=== PATIENT | female | born 2000 | race Caucasian/White ===

== ENCOUNTER 2025-04-26 18:23 | Emergency (ER) | payer SELFPAY ==
--- OUTSIDE RECORDS SUMMARY | 2025-04-26 18:30 | XMS REPORT | Continuity of Care Document ---
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 !Phasic!No ! ! + -------+------+------+ + !Proximal PROF !Phasic!No ! ! + +------+------+ + !Prox Femoral !Phasic!No ! ! + +------+------+ + !Dist Femoral !Phasic!No ! ! + +------+------+ + !Popliteal !Phasic!No ! ! + +------+------+ + Signature Date Dictated By: CHI DE LEÓN MD Transcribed By: [facility] on 03/19/23 1105 COPY TO:Blood hemoglobin measurement (moles/volume)2023-03-18 23:22:00* Test Item Value Reference Range Interpretation [facility] Hem[facility] (test code = 12158-4) 10.8 12.0-16.0 [facility] hematocrit (volume fraction) 2023-03-18 23:22:00* Test Item Value Reference Range Interpretation Comme [facility] Hematocrit (test code = 4544-3) 33.7 34.2-44.1 [facility] HospitalAutomated erythrocyte mean corpuscular volume 2023-03-18 23:22:00* Test Item Value Reference Range Interpretation Comme nts Mean Corpuscular Volume (madeline t code = 787-2) 89.9 81-99 [facility] HospitalAutomated erythrocyte mean corpuscular hemoglobin (mass per erythrocyte)2023-03-18 23:22:00* Test Item Value Reference Range Interpretation Comme nts Mean Corpuscular Hemoglobin (test code = 785-6) 28.8 28-32 [facility] HospitalAutomated erythrocyte mean corpuscular hemoglobin concentration measurement (mass/volume)2023-03-18 23:22:00* Test Item Value Reference Range Interpretation Comme nts Mean Corpuscular Hemoglobin Concent (test code = 786-4) 32.0 31-35 [facility] HospitalRDW YugIf-Cmy9924-52-06 23:22:00* Test Item Value Reference Range Interpretation Comme nts Red Cell Distribution Width (test code = 57446-4) 15.0 11.7-14.4 [facility] HospitalAutomated blood platelet count (count/volume) 2023-03-18 23:22:00* Test Item Value Reference Range Interpretation Comme [facility] Platelet Count (test code = 777-3) 199 140-360 [facility] HospitalAutomated blood segmented neutrophil count as percentage of total rflgxiklba8202-30-98 23:22:00* Test Item Value Reference Range Interpretation Comme nts Neutrophils (%) (Auto) (test code = 59192-1) 55.7 38.7-80.0 [facility] HospitalAutomated blood lymphocyte count as percentage ot total zctqejgqkk6337-69-27 23:22:00* Test Item Value Reference Range Interpretation Comme nts Lymphocytes (%) (Auto) (test code = 736-9) 32.1 18.0-39.1 [facility] HospitalAutomated blood monocyte count as percentage of total vocaiwsoje0234-50-57 23:22:00* Test Item Value Reference Range Interpretation Comme nts Monocytes (%) (Auto) (test c ode = 5905-5) 9.4 4.4-11.3 [facility] HospitalAutomated blood eosinophil count as percentage of total nlmantaxdv1321-84-91 23:22:00* Test Item Value Reference Range Interpretation Comme nts Eosinophils (%) (Auto) (test code = 713-8) 2.0 0.0-6.0 [facility] HospitalAutomated blood basophil count as percentage of total nwsrswdsqs5390-14-45 23:22:00* Test Item Value Reference Range Interpretation Comme nts Basophils (%) (Auto) (test c ode = 706-2) 0.5 0.0-1.0 [facility] HospitalFluoroscopic procedure less than one hour gsrgrwur1893-35-48 23:22:00* Test Item Value Reference Range Interpretation Comme nts IM GRANULOCYTES % (test code = IM GRANULOCYTES %) 0.3 0.0-1.0 [facility] HospitalAutomated blood neutrophil polnl7323-62-83 23:22:00* Test Item Value Reference Range Interpretation Comme nts Neutrophils # (Auto) (test c ode = 751-8) 4.4 2.1-6.9 [facility] HospitalBlood lymphocytes count (number/volume) 2023-03-18 23:22:00* Test Item Value Reference Range Interpretation Comme nts Lymphocytes # (Auto) (test c ode = 85426-1) 2.5 1.0-3.2 [facility] HospitalBlood monocytes automated count (number/volume)2023-03-18 23:22:00* Test Item Value Reference Range Interpretation Comme nts Monocytes # (Auto) (test code = 742-7) 0.7 0.2-0.8 [facility] HospitalAutomated blood eosinophil uryjl4672-53-97 23:22:00* Test Item Value Reference Range Interpretation Comme nts Eosinophils # (Auto) (test c ode = 711-2) 0.2 0.0-0.4 [facility] HospitalAutomated blood basophil count (count/volume) 2023-03-18 23:22:00* Test Item Value Reference Range Interpretation Comme nts Basophils # (Auto) (test code = 704-7) 0.0 0.0-0.1 [facility] sodium measurement (moles/volume)2023-03-18 23:22:00* Test Item Value Reference Range Interpretation Comme nts Sodium Level (test code = 2951-2) 143 136-145 [facility]anoerum or plasma potassium measurement (moles/volume)2023-03-18 23:22:00* Test Item Value Reference Range Interpretation Comme [facility] Potassium Level (test code = 2823-3) 3.9 3.5-5.1 [facility] or plasma chloride measurement (moles/volume)2023-03-18 23:22:00* Test Item Value Reference Range Interpretation Comme [facility] Chloride Level (test code = 2075-0) 109 98-107 [facility]anoerum or plasma carbon dioxide, total measurement (moles/volume)2023-03-18 23:22:00* Test Item Value Reference Range Interpretation Comme [facility] Carbon Dioxide Level (test c ode = 2028-9) 24 22-29 [facility]anoerum or plasma anion eyp6291-80-21 23:22:00 * Test Item Value Reference Range Interpretation Comme [facility] Anion Gap (test code = 46207-9) 13.9 8-16 [facility]anoerum or plasma urea nitrogen measurement (mass/volume)2023-03-18 23:22:00* Test Item Value Reference Range Interpretation Comme [facility] Blood Urea Nitrogen (test co de = 3094-0) 10 7-26 [facility]um or plasma creatinine measurement (mass/volume)2023-03-18 23:22:00* Test Item Value Reference Range Interpretation Comme [facility] Creatinine (test code = 2160-0) 0.93 0.57-1.11 [facility]ano[facility]um or plasma urea nitrogen/creatinine mass ucaxt6643-86-05 23:22:00* Test Item Value Reference Range Interpretation Comme [facility] BUN/Creatinine Ratio (test c ode = 3097-3) 11 6-25 [facility] HospitalGlomerular filtration rate/1.73 sq M.predicted [Volume Rate/Area] in Serum, Plasma or Blood by Creatinine-based formula (CKD-EPI 2020)2023-03-18 23:22:00* Test Item Value Reference Range Interpretation Comme [facility] Estimated GFR (CKD-EPI) (madeline t code = 02362-3) 89 >=60 [facility] HospitalGlucose usxvbfbxvxt7049-77-36 23:22:00* Test Item Value Reference Range Interpretation Comme [facility] Glucose Level (test code = ZQZ2599) 99 74-118 [facility]anoerum or plasma calcium measurement (mass/volume)2023-03-18 23:22:00* Test Item Value Reference Range Interpretation Comme [facility] Calcium Level (test code = 42095-4) 9.6 8.4-10.2 [facility]anoerum or plasma total bilirubin measurement (mass/volume)2023-03-18 23:22:00* Test Item Value Reference Range Interpretation Comme [facility] Total Bilirubin (test code = 1975-2) 0.7 0.2-1.2 [facility]anoerum or plasma alanine aminotransferase measurement (enzymatic activity/volume)2023-03-18 23:22:00* Test Item Value Reference Range Interpretation Comme [facility] Alanine Aminotransferase (AL T/SGPT) (test code = 1742-6) 12 0-55 [facility]ano[facility]um or plasma protein measurement (mass/volume)2023-03-18 23:22:00* Test Item Value Reference Range Interpretation Comme [facility] Total Protein (test code = 2885-2) 7.5 6.5-8.1 [facility] or plasma albumin measurement (mass/volume)2023-03-18 23:22:00* Test Item Value Reference Range Interpretation Comme [facility] Albumin (test code = 1751-7) 3.8 3.5-5.0 [facility] HospitalPlasma globulin measurement (mass/volume) 2023-03-18 23:22:00* Test Item Value Reference Range Interpretation Comme [facility] Globulin (test code = 70839-0) 3.7 2.3-3.5 [facility] or plasma albumin/globulin mass ratio 2023-03-18 23:22:00* Test Item Value Reference Range Interpretation Comme [facility] Albumin/Globulin Ratio (test code = 1759-0) 1.0 0.8-2.0 [facility]erum or plasma alkaline phosphatase measurement (enzymatic activity/volume)2023-03-18 23:22:00* Test Item Value Reference Range Interpretation Comme [facility] Alkaline Phosphatase (test c ode = 6768-6) 82 40-150 [facility] HospitalBNP Hng-fStl5784-22-06 23:22:00* Test Item Value Reference Range Interpretation Comme nts B-Type Natriuretic Peptide ( test code = 72044-0) 20.3 0-100 [facility]anoerum or plasma creatine kinase measurement (enzymatic activity/volume)2023-03-18 23:22:00* Test Item Value Reference Range Interpretation Comme [facility] Creatine Kinase (test code = 2157-6) 133 29-168 [facility] HospitalTroponin I measurement by highly sensitive enzyme ijgtnfmmhwi0232-74-19 23:22:00* Test Item Value Reference Range Interpretation Comme nts Troponin I (test code = 49307-6) < 0.001 0-0.300 [facility]anoerum or plasma choriogonadotropin ( test) gpylxzjhd8724-81-53 23:22:00* Test Item Value Reference Range Interpretation Comme nts Human Chorionic Gonadotropin , Qual (test code = 2118-8) NEGATIVE NEGATIVE [facility] HospitalWBC # [id number] 23:22:00* Test Item Value Reference Range Interpretation Comme [facility] White Blood Count (test code = 51868-7) 7.87 4.8-10. 8 [facility] HospitalBlood erythrocytes automated count (number/volume)2023-03-18 23:22:00* Test Item Value Reference Range Interpretation Comme [facility] Red Blood Count (test code = 789-8) 3.75 3.6-5.1 [facility] HospitalHEMATOLOGY2023-05-18 11:58:00* Test Item Value Reference Range Interpretation Comme nts Hgb (test code = Hgb) 9.5 12.0-16.0 [facility] InternationalF[facility] RBILJYQ9457-67-47 15:44:00* Test Item Value Reference Range Interpretation Comme nts ABO/Rh (test code = ABO/Rh) O POS [facility]WnijxacHXTUGGGOJP4243-53-13 15:44:00* Test Item Value Reference Range Interpretation Comme nts Segs (test code = Segs) 68.1 45.0-75.0 [facility] TempleXxqdizuVMYVAAAWPS8322-19-99 15:44:00* Test Item Value Reference Range Interpretation Comme nts Hep Bs Ag (test code = Hep Bs Ag) Negative *NA*(01/26/23 10:44 AM) [facility] AND [id number] 05:28:00* Test Item Value Reference Range Interpretation Comme nts UA Color (test code = UA Color) Yellow *NA*(11/27/22 12:28 AM) [facility] AND PPBZK0230-90-55 08:54:00* Test Item Value Reference Range Interpretation Comme nts UA Color (test code = UA Color) Yellow *NA*(11/03/22 2:54 AM) [facility]Urine color shlfsxtoywcab9350-22-54 17:20:00* Test Item Value Reference Range Interpretation Comme nts Urine Color (test code = 5778-6) BROWN YELLOW [facility] HospitalUrine iscoroz5932-66-22 17:20:00* Test Item Value Reference Range Interpretation Comme nts Urine Clarity (test code = 84084-7) HAZY CLEAR [facility]anopecific gravity of Urine by Test strip 2022-06-30 17:20:00* Test Item Value Reference Range Interpretation Comme nts Urine Specific [place] (test code = 5811-5) >=1.030 1.010-1.025 [facility] HospitalUrine pH measurement by automated test strip 2022-06-30 17:20:00* Test Item Value Reference Range Interpretation Comme nts Urine pH (test code = 05889-2) 5.5 5-7 [facility] HospitalUrine leukocyte esterase detection by automated test ajxch6034-31-86 17:20:00* Test Item Value Reference Range Interpretation Comme nts Urine Leukocyte Esterase ( st code = 47415-3) NEGATIVE NEGATIVE [facility] HospitalUrine nitrite detection by automated test itaba9952-72-52 17:20:00* Test Item Value Reference Range Interpretation Comme nts Urine Nitrite (test code = 65510-1) POSITIVE NEGATIVE [facility] HospitalUrine protein detection by automated test nldtj7584-16-57 17:20:00* Test Item Value Reference Range Interpretation Comme [facility] Urine Protein (test code = 46725-6) 1+ NEGATIVE [facility] HospitalUrine glucose detection by automated test bqoxz3656-83-18 17:20:00* Test Item Value Reference Range Interpretation Comme nts Urine Glucose (UA) (test cod e = 45418-9) NEGATIVE NEGATIVE [facility] HospitalUrine ketones detection by automated test haaec1931-79-36 17:20:00* Test Item Value Reference Range Interpretation Comme nts Urine Ketones (test code = 51365-2) 2+ NEGATIVE [facility] HospitalUrine urobilinogen measurement by test strip (mass/volume)2022-06-30 17:20:00* Test Item Value Reference Range Interpretation Comme nts Urine Urobilinogen (test cod e = 90638-8) 0.2 0.2-1 [facility] HospitalUrine total bilirubin lxkszafto1586-18-67 17:20:00* Test Item Value Reference Range Interpretation Comme nts Urine Bilirubin (test code = 1977-8) NEGATIVE NEGATIVE [facility] HospitalUrine erythrocytes uielssmty9098-45-69 17:20:00* Test Item Value Reference Range Interpretation Comme nts Urine Blood (test code = 57782-0) MODERATE NEGATIVE [facility] HospitalAutomated urine sediment leukocyte count by microscopy (number/high power field)2022-06-30 17:20:00* Test Item Value Reference Range Interpretation Comme nts Urine WBC (test code = 5821-4) 11-20 0-5 [facility] HospitalErythrocytes detection in urine sediment by light ufdqjyjjyl4023-00-66 17:20:00* Test Item Value Reference Range Interpretation Comme nts Urine RBC (test code = 63231-9) 11-20 0-5 [facility] HospitalBacteria detection in urine sediment by light jgzaxxrmbx8960-87-85 17:20:00* Test Item Value Reference Range Interpretation Comme nts Urine Bacteria (test code = 30070-1) MANY NONE [facility] HospitalEpithelial cells detection in urine sediment by light zyppolcgbf4399-58-65 17:20:00* Test Item Value Reference Range Interpretation Comme nts Urine Epithelial Cells (test code = 49218-3) MODERATE NONE [facility] HospitalTransitional cells detection in urine sediment by light ijyhnxouup4751-39-52 17:20:00* Test Item Value Reference Range Interpretation Comme nts Urine Transitional Epithelia l Cells (test code = 8249-5) MODERATE NONE [facility] OKOT6759-65-89 15:08:00 [facility] : 2000 Sex: F [place] [address] Patient Name: LUIS ALBERTO GAFFNEY MR #: [id number] : 2000 Age/Sex: 22/F Req #: [id number] Adm Physician: Ordered by: Cain Díaz MD Report #: [id number] Location: ER Room/Bed: Report: Diagnostic Imaging Report Status: Signed Procedure: [id number] US/US OB 1st TRIM SINGLE GEST Exam Date: 06/30/22 Exam Time: 1346 US OB 1st TRIM SINGLE GEST CLINICAL HISTORY: Nausea/vomiting, abdominal pain Last Menstrual Period: 05/07/2022. GP Status: . COMPARISON: None. TECHNIQUE:Real time transabdominal images were obtained, including color and spectral doppler of the adnexa. FINDINGS: There is a single intrauterine with a gestational sac, yolk sac, and embryo. Thecrown rump length is 1.69 cm corresponding to approximately 8 weeks and one day. The gestational sac is intact with a small perigestational hemorrhage measuring approximately 1.4 x 1.1 cm. Real time examination shows cardiac activity. The heart rate is 154 beats per minute. There are no fibroids. No adnexal masses. Normal color and spectral Doppler flow to bilateral ovaries IMPRESSION: Small subchorionic hematoma. Single, live intrauterine with an estimated gestational age of 8 weeksand one day (plus or minus 1 week), compared to gestational age by LMP of 7 weeks and 5 days. Signed by: Lev Zapata on 06/30/2022 3:08 PM Dictated By: LEV ZAPATA MD 1510 Transcribed By: DEBBIE on 06/30/22 1508 COPY TO: CAIN DÍAZ MDBlcadence leukocytes automated count (number/volume)2022-06-30 12:39:00* Test Item Value Reference Range Interpretation Comme [facility] White Blood Count (test code = 6690-2) 15.95 4.8-10.8 [facility] HospitalBlood erythrocytes automated count (number/volume)2022-06-30 12:39:00* Test Item Value Reference Range Interpretation Comme [facility] Red Blood Count (test code = 789-8) 4.86 3.6-5.1 [facility] HospitalBlood hemoglobin measurement (moles/volume) 2022-06-30 12:39:00* Test Item Value Reference Range Interpretation Comme [facility] Hemoglobin (test code = 13564-5) 15.0 12.0-16.0 [facility] HospitalAutomated blood hematocrit (volume fraction) 2022-06-30 12:39:00* Test Item Value Reference Range Interpretation Comme [facility] Hematocrit (test code = 4544-3) 46.2 34.2-44.1 [facility] HospitalAutomated erythrocyte mean corpuscular volume 2022-06-30 12:39:00* Test Item Value Reference Range Interpretation Comme [facility] Mean Corpuscular Volume (madeline t code = 787-2) 95.1 81-99 [facility] HospitalAutomated erythrocyte mean corpuscular hemoglobin (mass per erythrocyte)2022-06-30 12:39:00* Test Item Value Reference Range Interpretation Comme [facility] Mean Corpuscular Hemoglobin (test code = 785-6) 30.9 28-32 [facility] HospitalAutomated erythrocyte mean corpuscular hemoglobin concentration measurement (mass/volume)2022-06-30 12:39:00* Test Item Value Reference Range Interpretation Comme [facility] Mean Corpuscular Hemoglobin Concent (test code = 786-4) 32.5 31-35 [facility] HospitalRDW EatVm-Xza5013-99-18 12:39:00* Test Item Value Reference Range Interpretation Comme [facility] Red Cell Distribution Width (test code = 90549-1) 12.5 11.7-14.4 [facility] HospitalAutomated blood platelet count (count/volume) 2022-06-30 12:39:00* Test Item Value Reference Range Interpretation Comme [facility] Platelet Count (test code = 777-3) 209 140-360 [facility]om[facility] segmented neutrophil count as percentage of total aozyvkmhlo5019-63-33 12:39:00* Test Item Value Reference Range Interpretation Comme [facility] Neutrophils (%) (Auto) (test code = 78572-5) 95.3 38.7-80.0 [facility] HospitalAutomated blood lymphocyte count as percentage ot total qzycrxfxix6046-32-19 12:39:00* Test Item Value Reference Range Interpretation Comme nts Lymphocytes (%) (Auto) (test code = 736-9) 1.6 18.0-39.1 [facility] HospitalAutomated blood monocyte count as percentage of total xpgtuwnmtw5516-13-60 12:39:00* Test Item Value Reference Range Interpretation Comme nts Monocytes (%) (Auto) (test c ode = 5905-5) 2.6 4.4-11.3 [facility] HospitalAutomated blood eosinophil count as percentage of total ucddibeflv0510-84-43 12:39:00* Test Item Value Reference Range Interpretation Comme nts Eosinophils (%) (Auto) (test code = 713-8) 0.0 0.0-6.0 [facility] HospitalAutomated blood basophil count as percentage of total opbsrlqgge2317-91-77 12:39:00* Test Item Value Reference Range Interpretation Comme nts Basophils (%) (Auto) (test c ode = 706-2) 0.1 0.0-1.0 [facility] HospitalFluoroscopic procedure less than one hour ymhuoggf1725-90-21 12:39:00* Test Item Value Reference Range Interpretation Comme nts IM GRANULOCYTES % (test code = IM GRANULOCYTES %) 0.4 0.0-1.0 [facility] HospitalAutomated blood neutrophil dyftz5149-08-15 12:39:00* Test Item Value Reference Range Interpretation Comme nts Neutrophils # (Auto) (test c ode = 751-8) 15.2 2.1-6.9 [facility] HospitalBlood lymphocytes count (number/volume) 2022-06-30 12:39:00* Test Item Value Reference Range Interpretation Comme nts Lymphocytes # (Auto) (test c ode = 28564-6) 0.3 1.0-3.2 [facility] HospitalBlood monocytes automated count (number/volume)2022-06-30 12:39:00* Test Item Value Reference Range Interpretation Comme nts Monocytes # (Auto) (test code = 742-7) 0.4 0.2-0.8 [facility] HospitalAutomated blood eosinophil olxrb0524-27-42 12:39:00* Test Item Value Reference Range Interpretation Comme [facility] Eosinophils # (Auto) (test c ode = 711-2) 0.0 0.0-0.4 [facility] HospitalAutomated blood basophil count (count/volume) 2022-06-30 12:39:00* Test Item Value Reference Range Interpretation Comme [facility] Basophils # (Auto) (test code = 704-7) 0.0 0.0-0.1 [facility]ano[facility]um or plasma sodium measurement (moles/volume)2022-06-30 12:39:00* Test Item Value Reference Range Interpretation Comme [facility] Sodium Level (test code = 2951-2) 139 136-145 [facility] potassium measurement (moles/volume)2022-06-30 12:39:00* Test Item Value Reference Range Interpretation Comme [facility] Potassium Level (test code = 2823-3) 4.1 3.5-5.1 [facility] chloride measurement (moles/volume)2022-06-30 12:39:00* Test Item Value Reference Range Interpretation Comme [facility] Chloride Level (test code = 2075-0) 102 98-107 [facility] carbon dioxide, total measurement (moles/volume)2022-06-30 12:39:00* Test Item Value Reference Range Interpretation Comme [facility] Carbon Dioxide Level (test c ode = 2027-9) 22 22-29 [facility] plasma anion [id number] 12:39:00 * Test Item Value Reference Range Interpretation Comme [facility] Anion Gap (test code = 38689-3) 19.1 8-16 [facility] urea nitrogen measurement (mass/volume)2022-06-30 12:39:00* Test Item Value Reference Range Interpretation Comme [facility] Blood Urea Nitrogen (test co de = 3094-0) 14 7-26 [facility] creatinine measurement (mass/volume)2022-06-30 12:39:00* Test Item Value Reference Range Interpretation Comme nts Creatinine (test code = 2160-0) 0.71 0.57-1.11 [facility] urea nitrogen/creatinine mass [id number] 12:39:00* Test Item Value Reference Range Interpretation Comme [facility] BUN/Creatinine Ratio (test c ode = 3097-3) 20 6-25 [facility] rate/1.73 sq M.predicted [Volume Rate/Area] in Serum, Plasma or Blood by Creatinine-based formula (CKD-EPI 2020)2022-06-30 12:39:00* Test Item Value Reference Range Interpretation Comme [facility] Estimated GFR (CKD-EPI) (test code = 93760-1) 123 See_Comment [Automated message] The system which generated this result transmitted reference range: >=60. The reference range was not used to interpret this result as normal/abnormal. [facility] HospitalGlucose [id number] 12:39:00* Test Item Value Reference Range Interpretation Comme [facility] Glucose Level (test code = DDJ2787) 129 74-118 [facility] calcium measurement (mass/volume)2022-06-30 12:39:00* Test Item Value Reference Range Interpretation Comme [facility] Calcium Level (test code = 32890-1) 9.8 8.4-10.2 [facility] total bilirubin measurement (mass/volume)2022-06-30 12:39:00* Test Item Value Reference Range Interpretation Comme [facility] Total Bilirubin (test code = 1975-2) 2.1 0.2-1.2 [facility] alanine aminotransferase measurement (enzymatic activity/volume)2022-06-30 12:39:00* Test Item Value Reference Range Interpretation Comme [facility] Alanine Aminotransferase (AL T/SGPT) (test code = 1742-6) 13 0-55 [facility] protein measurement (mass/volume)2022-06-30 12:39:00* Test Item Value Reference Range Interpretation Comme [facility] Total Protein (test code = 2885-2) 8.7 6.5-8.1 [facility] albumin measurement (mass/volume)2022-06-30 12:39:00* Test Item Value Reference Range Interpretation Comme [facility] Albumin (test code = 1751-7) 4.4 3.5-5.0 [facility] globulin measurement (mass/volume) 2022-06-30 12:39:00* Test Item Value Reference Range Interpretation Comme [facility] Globulin (test code = 24412-5) 4.3 2.3-3.5 [facility] albumin/globulin mass ratio 2022-06-30 12:39:00* Test Item Value Reference Range Interpretation Comme [facility] Albumin/Globulin Ratio (test code = 1759-0) 1.0 0.8-2.0 [facility] alkaline phosphatase measurement (enzymatic activity/volume)2022-06-30 12:39:00* Test Item Value Reference Range Interpretation Comme [facility] Alkaline Phosphatase (test c ode = 6768-6) 72 40-150 [facility] chorionic gonadotropin measurement (mass/volume)2022-06-30 12:39:00* Test Item Value Reference Range Interpretation Comme [facility] Human Chorionic Gonadotropin , Quant (test code = 76511-1) 500771.12 0-10 [facility]- XR KNEE 3 V [id number] 22:34:00 [facility])Name: LUIS ALBERTO GAFFNEY : 2000 Sex: F Name: JOHAN GAFFNEYA [facility] : 2000 Age/S:22 /F [address] [facility] Unit#:[id number] Loc: [place] [address] Phys: Ariela Guan MD Date: PHONE #: [phone] Status: PRE ER FAX #: [phone] Exam Date: 05/11/2022 Reason: PAIN EXAMS: CPT CODE: [id number] XR KNEE 3 V RT 46018 REASON FOR EXAM: PAIN EXAM ORDER DATE: 05/11/2022 9:53 PM Ordering: Ariela Guan MD Attending:Ariela Guan MD Location:[facility] PROCEDURE: - XR KNEE 3 V RT FINDINGS: 3 views of the right knee were obtained. The osseous structures are unremarkable in size and shape. The joint spaces are maintained. No evidence of fracture. No evidence of joint effusion. The patella is intact IMPRESSION: Unremarkable right knee at 2234 Reported and signed by: Carolyn Tracy M.D. CC: Ariela Guan MD; Andres Hameed Technologist: Marium Murray([place])(CT) Trnscrpt Data: 05/11/2022 (2233) [email or web address] Orig Print D/T: S: 05/11/2022 (2232) PAGE 1 Signed ReportLACTIC [id number] 23:22:00* Test Item Value Reference Range Interpretation Comme nts LACTIC ACID (test code = LACT) 0.6 mmol/L 0.4-1.9 N HEPATIC FUNCTION [id number] 22:34:00* Test Item Value Reference Range Interpretation Comme nts TOTAL PROTEIN (test code = PROT) 8.9 g/dL 6.4-8.2 H ALBUMIN (test code = ALB) 4.80 g/dL 3.4-5.0 N BILIRUBIN TOTAL (test code = BILT) 2.10 mg/dL 0.0-1.0 H BILIRUBIN DIRECT (test code = BILD) 0.70 MG/DL 0.0-0.30 H BILIRUBIN INDIRECT (test cod e = BILIND) 1.40 MG/DL SGOT/AST (test code = AST)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 formula.Chronic kidney disease is defined as either kidney damageor GFR <60 mL/min/1.73 m2 for >3 months. [Automated message] The system which generated this result transmitted reference range: >=60. The reference range was not used to interpret this result as normal/abnormal. CREATININE (test code = CREAT) 0.60 mg/dL 0.55-1.02 N Note change in reference range due to change in reagent. BUN/CREATININE RATIO (test code = BUN/CREA) 15.4 10-20 N CALCIUM (test code = CA) 9.8 mg/dL 8.5-10.1 N HEPATIC FUNCTION [id number] 00:35:00* Test Item Value Reference Range Interpretation Comme nts TOTAL PROTEIN (test code = PROT) 7.6 gram/dL 6.4-8.2 N ALBUMIN (test code = ALB) 4.3 g/dL 3.4-5.0 N GLOBULIN (test code = GLOB) 3.3 gram/dL 2.7-4.2 N ALBUMIN/GLOBULIN RATIO (test code = A/G) 1.3 0.75-1.50 N BILIRUBIN TOTAL (test code = BILT) 0.50 mg/dL 0.0-1.0 N BILIRUBIN DIRECT (test code = BILD) 0.20 mg/dL 0.0-0.20 N SGOT/AST (test code = AST) 24 IUnit/L 15-37 N SGPT/ALT (test code = ALT) 24 IUnit/L 12-78 N ALKALINE PHOSPHATASE TOTAL (test code = ALKP) 81 IUnit/L 45-117 N Note change in reference range due to change in reagent. LACTIC DEHYDROGENASE(LDH)2020-11-08 00:35:00* Test Item Value Reference Range Interpretation Comme nts LACTIC DEHYDROGENASE(LDH) (t est code = LDH) 135 IUnit/L 84-246 N [id number] 00:35:00* Test Item Value Reference Range Interpretation Comme nts LIPASE (test code = LIP) 39 U/L 12.00-57.00 N [id number] 00:35:00* Test Item Value Reference Range Interpretation Comme nts TROPONIN-I (test code = TROPI) 0.013 ng/mL 0-0.045 N [id number] 00:35:00* Test Item Value Reference Range Interpretation Comme nts FERRITIN (test code = ASH) 21 ng/mL 8-388 N B-TYPE NATRIURETIC [id number] 00:32:00* Test Item Value Reference Range Interpretation Comme nts B-TYPE NATRIURETIC PEPTIDE (test code = BNP) 16.6 pgram/mL 0-100 N C REACTIVE [id number] 00:32:00* Test Item Value Reference Range Interpretation Comme nts C REACTIVE PROTEIN (test cod e = CRP) < 0.40 mg/dL 0-0.3 H LACTIC [id number] 00:29:00* Test Item Value Reference Range Interpretation Comme nts LACTIC ACID (test code = LACT) 1.2 mmol/L 0.4-1.9 N CBC W/AUTO [id number] 23:52:00* Test Item Value Reference Range Interpretation Comme nts WHITE BLOOD CELL (test code = WBC) 6.2 K/mm3 4.5-12.5 N RED BLOOD CELL (test code = RBC) 4.60 mill/mm3 3.7-5.2 N HEMOGLOBIN (test code = HGB) 14.2 gram/dL 11.5-15.5 N HEMATOCRIT (test code = HCT) 42.2 % 36.0-46.0 N MEAN CELL VOLUME (test code = MCV) 91.7 fL 80-98 N MEAN CELL HGB (test code = MCH) 30.9 picogram 27.0-33.0 N MEAN CELL HGB CONCETRATION (test code = MCHC) 33.6 gram/dL 33.0-36.0 N RED CELL DISTRIBUTION WIDTH (test code = RDW) 12.8 % 11.6-16.2 N RED CELL DISTRIBUTION WIDTH SD (test code = RDW-SD) 42.6 fL 37.0-51.0 N PLATELET COUNT (test code = PLT) 218 K/mm3 150-450 N MEAN PLATELET VOLUME (test c ode = MPV) 11.2 fL 6.7-11.0 H NEUTROPHIL % (test code = NT%) 51.0 % 39.0-69.0 N IMMATURE GRANULOCYTE % (test code = IG%) 0.5 % 0.0-5.0 N LYMPHOCYTE % (test code = LY%) 35.3 % 25.0-55.0 N MONOCYTE % (test code = MO%) 9.2 % 0.0-10.0 N EOSINOPHIL % (test code = EO%) 3.4 % 0.0-5.0 N BASOPHIL % (test code = BA%) 0.6 % 0.0-1.0 N NUCLEATED RBC % (test code = NRBC%) 0.0 % 0-0 N NEUTROPHIL # (test code = NT#) 3.16 K/mm3 1.8-7.7 N IMMATURE GRANULOCYTE # (test code = IG#) 0.03 x10 3/uL 0-0.03 N LYMPHOCYTE # (test code = LY#) 2.19 K/mm3 1.0-5.0 N MONOCYTE # (test code = MO#) 0.57 K/mm3 0-0.8 N EOSINOPHIL # (test code = EO#) 0.21 K/mm3 0.0-0.5 N BASOPHIL # (test code = BA#) 0.04 K/mm3 0.0-0.2 N NUCLEATED RBC # (test code = NRBC#) 0.00 K/mm3 0.0-0.1 N - XR CHEST 1 [id number] 23:29:00 [facility])Name: LUIS ALBERTO GAFFNEY : 2000 Sex: F FAX: Rupal Roque NP [place]: St: REG FAX: Y Andres Hameed S [phone] Name: LUIS ALBERTO GAFFNEY [facility] : 2000 Age/S: 20/F [address] [facility] Unit #: [id number] Loc: [place] [address] Phys: Rupal Roque NP Acct: [id number] Dis Date: Status: REG ER PHONE #: [phone] Exam Date: 0 11/07/2020 2314 FAX #: [phone] Reason: SHORTNESS OF BREATH EXAMS: CPT CODE: [id number] XR CHEST1 V [id number] DICTATION LOCATION: [facility] HISTORY: Female, 20 years of age with SHORTNESS OF BREATH EXAM: CHEST X-RAY, ONE VIEW COMPARISON: None COMMENT: Frontal view of the chest is provided. No focal infiltrate, consolidation, mass lesion, or effusion is seen. Cardiac silhouette is within normal limits.No acute bony abnormalities. IMPRESSION: No acute cardiopulmonary disease. Electronically Signedby Marium Kaur MD on 11/07/2020 at 2329 Reported and signed by: Marium Kaur MD CC: Rupal Roque NP; Andres Hameed Technologist: RT ANUJ Trnscrd Date/Time/By: 11/07/2020 (7661): By: Ayden Orig Print D/T: S: 11/07/2020 (8240) PAGE 1 Signed ReportCBC W/AUTO [id number] 07:34:00* Test Item Value Reference Range Interpretation Comme nts WHITE BLOOD CELL (test code = WBC) 20.0 K/mm3 4.5-12.5 H RED BLOOD CELL (test code = RBC) 3.55 mill/mm3 3.7-5.2 L HEMOGLOBIN (test code = HGB) 11.3 gram/dL 11.5-15.5 L HEMATOCRIT (test code = HCT) 35.0 % 36.0-46.0 L MEAN CELL VOLUME (test code = MCV) 98.6 fL 80-98 H MEAN CELL HGB (test code = MCH) 31.8 picogram 27.0-33.0 N MEAN CELL HGB CONCETRATION (test code = MCHC) 32.3 gram/dL 33.0-36.0 L RED CELL DISTRIBUTION WIDTH (test code = RDW) 13.1 % 11.6-16.2 N RED CELL DISTRIBUTION WIDTH SD (test code = RDW-SD) 46.5 fL 37.0-51.0 N PLATELET COUNT (test code = PLT) 147 K/mm3 150-450 L RESULT VERIFIED BY REPEAT ANALYSIS MEAN PLATELET VOLUME (test code = MPV) 12.4 fL 6.7-11.0 H NEUTROPHIL % (test code = NT%) 81.3 % 39.0-69.0 H IMMATURE GRANULOCYTE % (test code = IG%) 0.7 % 0.0-5.0 N LYMPHOCYTE % (test code = LY%) 11.0 % 25.0-55.0 L MONOCYTE % (test code = MO%) 6.3 % 0.0-10.0 N EOSINOPHIL % (test code = EO%) 0.4 % 0.0-5.0 N BASOPHIL % (test code = BA%) 0.3 % 0.0-1.0 N NUCLEATED RBC % (test code = NRBC%) 0.0 % 0-0 N NEUTROPHIL # (test code = NT#) 16.25 K/mm3 1.8-7.7 H IMMATURE GRANULOCYTE # (test code = IG#) 0.15 x10 3/uL 0-0.03 H LYMPHOCYTE # (test code = LY#) 2.21 K/mm3 1.0-5.0 N MONOCYTE # (test code = MO#) 1.27 K/mm3 0-0.8 H EOSINOPHIL # (test code = EO#) 0.09 K/mm3 0.0-0.5 N BASOPHIL # (test code = BA#) 0.07 K/mm3 0.0-0.2 N NUCLEATED RBC # (test code = NRBC#) 0.00 K/mm3 0.0-0.1 N SPECIMEN COMMENTS: day 1HIV 1 2 COMBO AG/AB [id number] 23:48:00 * Test Item Value Reference Range Interpretation Comme nts HIV 1 2 COMBO AG/AB SCREEN (test code = [id number]) AB/AG NON REACTIVE NONREACTIVE NONREACTIVE HIV P24 ANTIGEN NONREACTIVE NONREACTIVE HIV 1&2 ANTIBODY NONREACTIVE THE HIV-1 P24 TEST HELPS DISTINGUISH ACUTE HIV-1INFECTIONFROM ESTABLISHED HIV-1 INFECTION WHEN THE SPECIMEN ISPOSITIVE FOR HIV-1 P24 ANTIGEN. HIV-1 P24 ANTIGEN IS HIGHEST IN THE FIRST FEW WEEKS AFTERINFECTION COMPREHENSIVE METABOLIC [id number] 23:42:00* Test Item Value Reference Range Interpretation Comme nts SODIUM (test code = NA) 139 mmol/L 136-145 N POTASSIUM (test code = K) 3.9 mmol/L 3.5-5.1 N CHLORIDE (test code = CL) 105.0 mmol/L 98-107 N CARBON DIOXIDE (test code = CO2) 24.0 mmol/L 21-32 N ANION GAP (test code = GAP) 13.9 10-20 N GLUCOSE (test code = GLU) 83 mg/dL 74-106 N BLOOD UREA NITROGEN (test code = BUN) 17 mg/dL 7-18 N GLOMERULAR FILTRATION RATE (test code = GFR) > 60 mL/min >=60 Estimated GFR by using Modified MDRD formula.Chronic kidney disease is defined as either kidney damageor GFR <60 mL/min/1.73 m2 for >3 months. CREATININE (test code = CREAT) 0.80 mg/dL 0.55-1.02 N Note change in reference range due to change in reagent. BUN/CREATININE RATIO (test code = BUN/CREA) 20.4 10-20 H TOTAL PROTEIN (test code = PROT) 7.1 gram/dL 6.4-8.2 N ALBUMIN (test code = ALB) 2.9 g/dL 3.4-5.0 L GLOBULIN (test code = GLOB) 4.2 gram/dL 2.7-4.2 N ALBUMIN/GLOBULIN RATIO (test code = A/G) 0.7 0.75-1.50 L CALCIUM (test code = CA) 9.0 mg/dL 8.5-10.1 N BILIRUBIN TOTAL (test code = BILT) 0.40 mg/dL 0.0-1.0 N SGOT/AST (test code = AST) 15 IUnit/L 15-37 N SGPT/ALT (test code = ALT) 16 IUnit/L 12-78 N ALKALINE PHOSPHATASE TOTAL (test code = ALKP) 167 IUnit/L 45-117 H Note change in reference range due to change in reagent. COMPREHENSIVE METABOLIC [id number] 23:34:00* Test Item Value Reference Range Interpretation Comme nts SODIUM (test code = NA) 139 mmol/L 136-145 N POTASSIUM (test code = K) 3.9 mmol/L 3.5-5.1 N CHLORIDE (test code = CL) 105.0 mmol/L 98-107 N CARBON DIOXIDE (test code = CO2) mmol/L 21-32 ANION GAP (test code = GAP) 10-20 GLUCOSE (test code = GLU) mg/dL 74-106 BLOOD UREA NITROGEN (test co de = BUN) mg/dL 7-18 GLOMERULAR FILTRATION RATE ( test code = GFR) mL/min >=60 CREATININE (test code = CREAT) mg/dL 0.55-1.02 BUN/CREATININE RATIO (test c ode = BUN/CREA) 10-20 TOTAL PROTEIN (test code = PROT) gram/dL 6.4-8.2 ALBUMIN (test code = ALB) g/dL 3.4-5.0 GLOBULIN (test code = GLOB) gram/dL 2.7-4.2 ALBUMIN/GLOBULIN RATIO (test code = A/G) 0.75-1.50 CALCIUM (test code = CA) mg/dL 8.5-10.1 BILIRUBIN TOTAL (test code = BILT) mg/dL 0.0-1.0 SGOT/AST (test code = AST) IUnit/L 15-37 SGPT/ALT (test code = ALT) IUnit/L 12-78 ALKALINE PHOSPHATASE TOTAL ( test code = ALKP) IUnit/L 45-117 AG HEPAT B [id number] 22:47:00* Test Item Value Reference Range Interpretation Comme nts AG HEPAT B SURF (test code = HBSAG) Nonreactive Index Nonreactive AB [id number] 22:47:00* Test Item Value Reference Range Interpretation Comme nts AB TREPONEMA (test code = TREPAB) Nonreactive Index NonReactive URINALYSIS [id number] 22:22:00* Test Item Value Reference Range Interpretation Comme nts UA COLOR (test code = COLU) Light-Yellow YELLOW UA APPEARANCE (test code = APPU) Cloudy CLEAR A UA GLUCOSE DIPSTICK (test code = DGLUU) NEGATIVE mg/dL NEGATIVE UA BILIRUBIN DIPSTICK (test code = BILU) NEGATIVE mg/dL NEGATIVE UA KETONE DIPSTICK (test code = KETU) NEGATIVE mg/dL NEGATIVE UA SPECIFIC GRAVITY (test code = SGU) 1.019 1.001-1.035 UA BLOOD DIPSTICK (test code = GHAZALA) 0.06 mg/dL (1+) mg/dL NEGATIVE A UA PH DIPSTICK (test code = KULWANT) 6.5 5.0-8.0 UA PROTEIN DIPSTICK (test code = PROU) NEGATIVE mg/dL NEGATIVE UA UROBILINIOGEN DIPSTICK (test code = URO) Normal mg/dL NEGATIVE UA NITRITE DIPSTICK (test code = AVERY) NEGATIVE NEGATIVE UA LEUKOCYTE ESTERASE W REFLEX (test code = LEUUR) 500 Kusum/uL (3+) Kusum/uL NEGATIVE A UA WBC (test code = WBCU) 21-50 per HPF 0-5 A UA RBC (test code = RBCU) 11-20 #/HPF 0-5 A UA EPITHELIAL CELLS (test code = EPIU) MANY per HPF FEW UA BACTERIA (test code = BACU) FEW #/HPF NONE A UA MUCUS (test code = MUCU) FEW #/LPF FEW URINALYSIS [id number] 22:21:00* Test Item Value Reference Range Interpretation Comme nts UA COLOR (test code = COLU) Light-Yellow YELLOW UA APPEARANCE (test code = APPU) Cloudy CLEAR A UA GLUCOSE DIPSTICK (test code = DGLUU) NEGATIVE mg/dL NEGATIVE UA BILIRUBIN DIPSTICK (test code = BILU) NEGATIVE mg/dL NEGATIVE UA KETONE DIPSTICK (test code = KETU) NEGATIVE mg/dL NEGATIVE UA SPECIFIC GRAVITY (test code = SGU) 1.019 1.001-1.035 UA BLOOD DIPSTICK (test code = GHAZALA) 0.06 mg/dL (1+) mg/dL NEGATIVE A UA PH DIPSTICK (test code = KULWANT) 6.5 5.0-8.0 UA PROTEIN DIPSTICK (test code = PROU) NEGATIVE mg/dL NEGATIVE UA UROBILINIOGEN DIPSTICK (test code = URO) Normal mg/dL NEGATIVE UA NITRITE DIPSTICK (test code = AVERY) NEGATIVE NEGATIVE UA LEUKOCYTE ESTERASE W REFLEX (test code = LEUUR) 500 Kusum/uL (3+) Kusum/uL NEGATIVE A UA WBC (test code = WBCU) per HPF 0-5 UA RBC (test code = RBCU) per HPF 0-5 UA EPITHELIAL CELLS (test code = EPIU) per HPF Few UA BACTERIA (test code = BACU) per HPF NONE URINALYSIS [id number] 22:21:00* Test Item Value Reference Range Interpretation Comme nts UA COLOR (test code = COLU) Light-Yellow YELLOW UA APPEARANCE (test code = APPU) Cloudy CLEAR A UA GLUCOSE DIPSTICK (test code = DGLUU) NEGATIVE mg/dL NEGATIVE UA BILIRUBIN DIPSTICK (test code = BILU) NEGATIVE mg/dL NEGATIVE UA KETONE DIPSTICK (test code = KETU) NEGATIVE mg/dL NEGATIVE UA SPECIFIC GRAVITY (test code = SGU) 1.019 1.001-1.035 UA BLOOD DIPSTICK (test code = GHAZALA) 0.06 mg/dL (1+) mg/dL NEGATIVE A UA PH DIPSTICK (test code = KULWANT) 6.5 5.0-8.0 UA PROTEIN DIPSTICK (test code = PROU) NEGATIVE mg/dL NEGATIVE UA UROBILINIOGEN DIPSTICK (test code = URO) Normal mg/dL NEGATIVE UA NITRITE DIPSTICK (test code = AVERY) NEGATIVE NEGATIVE UA LEUKOCYTE ESTERASE W REFLEX (test code = LEUUR) 500 Kusum/uL (3+) Kusum/uL NEGATIVE A UA WBC (test code = WBCU) per HPF 0-5 UA RBC (test code = RBCU) per HPF 0-5 UA EPITHELIAL CELLS (test code = EPIU) per HPF Few UA BACTERIA (test code = BACU) per HPF NONE CBC W/AUTO [id number] 22:12:00* Test Item Value Reference Range Interpretation Comme nts WHITE BLOOD CELL (test code = WBC) 9.9 K/mm3 4.5-12.5 N RED BLOOD CELL (test code = RBC) 3.84 mill/mm3 3.7-5.2 N HEMOGLOBIN (test code = HGB) 12.3 gram/dL 11.5-15.5 N HEMATOCRIT (test code = HCT) 36.6 % 36.0-46.0 N MEAN CELL VOLUME (test code = MCV) 95.3 fL 80-98 N MEAN CELL HGB (test code = MCH) 32.0 picogram 27.0-33.0 N MEAN CELL HGB CONCETRATION (test code = MCHC) 33.6 gram/dL 33.0-36.0 N RED CELL DISTRIBUTION WIDTH (test code = RDW) 13.0 % 11.6-16.2 N RED CELL DISTRIBUTION WIDTH SD (test code = RDW-SD) 44.7 fL 37.0-51.0 N PLATELET COUNT (test code = PLT) 205 K/mm3 150-450 N MEAN PLATELET VOLUME (test c ode = MPV) 12.6 fL 6.7-11.0 H NEUTROPHIL % (test code = NT%) 65.6 % 39.0-69.0 N IMMATURE GRANULOCYTE % (test code = IG%) 0.5 % 0.0-5.0 N LYMPHOCYTE % (test code = LY%) 24.1 % 25.0-55.0 L MONOCYTE % (test code = MO%) 8.8 % 0.0-10.0 N EOSINOPHIL % (test code = EO%) 0.8 % 0.0-5.0 N BASOPHIL % (test code = BA%) 0.2 % 0.0-1.0 N NUCLEATED RBC % (test code = NRBC%) 0.0 % 0-0 N NEUTROPHIL # (test code = NT#) 6.52 K/mm3 1.8-7.7 N IMMATURE GRANULOCYTE # (test code = IG#) 0.05 x10 3/uL 0-0.03 H LYMPHOCYTE # (test code = LY#) 2.39 K/mm3 1.0-5.0 N MONOCYTE # (test code = MO#) 0.87 K/mm3 0-0.8 H EOSINOPHIL # (test code = EO#) 0.08 K/mm3 0.0-0.5 N BASOPHIL # (test code = BA#) 0.02 K/mm3 0.0-0.2 N NUCLEATED RBC # (test code = NRBC#) 0.00 K/mm3 0.0-0.1 N Novel Coronavirus 07:23:00* Test Item Value Reference Range Interpretation Comme nts Novel Coronavirus 2019 Inhouse (test code = [id number]) Negative Negative Positive resul ts are indicative of the presence [id number] RNA, clinical correlation with patient historyand other diagnostic information is necessary to determinepatient infection status. Positive results do not rule outbacterial infection or co-infection with other viruses. Negative results do not preclude SARS-CoV-2 infection andshould not be used as the sole basis for patient managementdecisions. Negative results must be combined with otherclinical observations, patient history, and epidemiologicalinformation . Detection of SARS-CoV-2 RNA may be affected bysample collection methods, storage conditions, and/or stageof infection. Viral RNA mutations, vaccinations, antiviraltherapeutics, antibiotics, chemotherapeutic orimmunosuppressant drugs have not been evaluated for effectson detection. Results are for the identification of SARS-CoV-2 RNA usingthe [employer] M2000 System under the FDA Emergency UseAuthorization. The testing is performed by personneltrained in the procedures for the [employer] M2000 moleculardiagnostic SARS-CoV-2 assay in vitro. Novel Coronavirus 07:22:00* Test Item Value Reference Range Interpretation Comme nts Novel Coronavirus 2018 Inhouse (test code = [id number]) Negative Negative Positive resul ts are indicative of the presence [id number] RNA, clinical correlation with patient historyand other diagnostic information is necessary to determinepatient infection status. Positive results do not rule outbacterial infection or co-infection with other viruses. Negative results do not preclude SARS-CoV-2 infection andshould not be used as the sole basis for patient managementdecisions. Negative results must be combined with otherclinical observations, patient history, and epidemiologicalinformation . Detection of SARS-CoV-2 RNA may be affected bysample collection methods, storage conditions, and/or stageof infection. Viral RNA mutations, vaccinations, antiviraltherapeutics, antibiotics, chemotherapeutic orimmunosuppressant drugs have not been evaluated for effectson detection. Results are for the identification of SARS-CoV-2 RNA usingthe [employer] M2000 System under the FDA Emergency UseAuthorization. The testing is performed by personneltrained in the procedures for the [employer] M2000 moleculardiagnostic SARS-CoV-2 assay in vitro. DRUGS OF ABUSE SCREEN [id number] 19:30:00* Test Item Value Reference Range Interpretation Comme nts UA PH DIPSTICK (test code = KULWANT) 6.0 5.0-8.0 URN COCAINE (test code = COCAURN) NEGATIVE <300 ng/mL URN CANNABINOIDS (test code = CANNABURN) NEGATIVE <50 ng/mL URN AMPHETAMINE (test code = AMPHETURN) NEGATIVE <1000 ng/mL URN BARBITURATE (test code = BARBITURN) NEGATIVE <200 ng/mL URN BENZODIAZEPINE (test cod e = BENZOURN) NEGATIVE <200 ng/mL URN OPIATES (test code = OPIATURN) NEGATIVE <300 ng/mL URN PHENCYCLIDINE (PCP) (madeline t code = PHENCURN) NEGATIVE <25 ng/mL URN METHADONE (test code = METHAURN) NEGATIVE <300 ng/mL DRUGS OF ABUSE SCREEN [id number] 19:19:00* Test Item Value Reference Range Interpretation Comme nts UA PH DIPSTICK (test code = KULWANT) 6.0 5.0-8.0 URN COCAINE (test code = COCAURN) <300 ng/mL URN CANNABINOIDS (test code = CANNABURN) <50 ng/mL URN AMPHETAMINE (test code = AMPHETURN) <1000 n g/mL URN BARBITURATE (test code = BARBITURN) <200 ng /mL URN BENZODIAZEPINE (test cod e = BENZOURN) <200 ng/mL URN OPIATES (test code = OPIATURN) <300 ng/mL URN PHENCYCLIDINE (PCP) (madeline t code = PHENCURN) <25 ng/mL URN METHADONE (test code = METHAURN) <300 ng/mL URINALYSIS [id number] 19:18:00* Test Item Value Reference Range Interpretation Comme nts UA COLOR (test code = COLU) YELLOW YELLOW UA APPEARANCE (test code = APPU) Cloudy CLEAR A UA GLUCOSE DIPSTICK (test code = DGLUU) NEGATIVE mg/dL NEGATIVE UA BILIRUBIN DIPSTICK (test code = BILU) NEGATIVE mg/dL NEGATIVE UA KETONE DIPSTICK (test code = KETU) 40 (2+) mg/dL NEGATIVE A UA SPECIFIC GRAVITY (test code = SGU) 1.020 1.001-1.035 UA BLOOD DIPSTICK (test code = GHAZALA) 0.03 mg/dL (Trace) mg/dL NEGATIVE A UA PH DIPSTICK (test code = KULWANT) 6.0 5.0-8.0 UA PROTEIN DIPSTICK (test code = PROU) 20 (Trace) mg/dL NEGATIVE A UA UROBILINIOGEN DIPSTICK (test code = URO) Normal mg/dL NEGATIVE UA NITRITE DIPSTICK (test code = AVERY) NEGATIVE NEGATIVE UA LEUKOCYTE ESTERASE W REFLEX (test code = LEUUR) 250 Kusum/uL (2+) Kusum/uL NEGATIVE A UA WBC (test code = WBCU) 11-20 per HPF 0-5 A UA RBC (test code = RBCU) 6-10 #/HPF 0-5 A UA EPITHELIAL CELLS (test code = EPIU) FEW per HPF FEW UA BACTERIA (test code = BACU) FEW #/HPF NONE A UA MUCUS (test code = MUCU) FEW #/LPF FEW Urine Source? Clean CatchURINALYSIS [id number] 19:14:00* Test Item Value Reference Range Interpretation Comme nts UA COLOR (test code = COLU) YELLOW YELLOW UA APPEARANCE (test code = APPU) Cloudy CLEAR A UA GLUCOSE DIPSTICK (test code = DGLUU) NEGATIVE mg/dL NEGATIVE UA BILIRUBIN DIPSTICK (test code = BILU) NEGATIVE mg/dL NEGATIVE UA KETONE DIPSTICK (test code = KETU) 40 (2+) mg/dL NEGATIVE A UA SPECIFIC GRAVITY (test code = SGU) 1.020 1.001-1.035 UA BLOOD DIPSTICK (test code = GHAZALA) 0.03 mg/dL (Trace) mg/dL NEGATIVE A UA PH DIPSTICK (test code = KULWANT) 6.0 5.0-8.0 UA PROTEIN DIPSTICK (test code = PROU) 20 (Trace) mg/dL NEGATIVE A UA UROBILINIOGEN DIPSTICK (test code = URO) Normal mg/dL NEGATIVE UA NITRITE DIPSTICK (test code = AVERY) NEGATIVE NEGATIVE UA LEUKOCYTE ESTERASE W REFLEX (test code = LEUUR) 250 Kusum/uL (2+) Kusum/uL NEGATIVE A UA WBC (test code = WBCU) per HPF 0-5 UA RBC (test code = RBCU) per HPF 0-5 UA EPITHELIAL CELLS (test code = EPIU) per HPF Few UA BACTERIA (test code = BACU) per HPF NONE Urine Source? Clean CatchFETAL [id number] 19:13:00* Test Item Value Reference Range Interpretation Comme nts FIBRONECTIN (test code = FFN) NEGATIVE - US PREG AFTER [id number] 22:38:00Name: LUIS ALBERTO GAFFNEY [facility] : 2000 Age/S: 20 / F [address] Unit #: [id number] Loc: [place] [address] Phys: Tod Woo MD Acct: [id number] Dis Date: Status: REG ER PHONE #: [phone] Exam Date: 05/01/2020 2219 FAX #: [phone] Reason: VAGINAL BLEEDING/PELVIC PAIN EXAMS: CPT CODE: [id number] US PREG AFTER TRI 03534 Location: OB - SONOGRAM, 05/01/20 HISTORY: Patient presenting to the emergency room with abdominal/pelvic pain. LMP: Results in an age of the fetus of 19 wks 4 days - EMORY 09/21/20. CURRENT US: 05/01/20 19 wks 3 days - EMORY 09/22/20.PRIOR US: None from this . A single fetus is present in variable presentation. Placenta lies anterior, It is grade 1. No previa is identified. No abruption. No marginal collection is seen. MEASUREMENTS: BPD: 4.47 cm = 19 weeks 4 days. HC: 16.27 cm = 19 weeks 4 days. FL: 3.07 cm = 19 weeks 5 days. AC: 14.3 cm = 19 weeks 4 days. FRANKLYN is 12.46 mL. Cervical length is 3.1 cm. Estimated weight is 297.6 grams. This lies at the 43rd percentile by dates. heart rate is 146 beats per minute No abnormal adnexal masses or free fluid collections COMMENTS: There is presence of a single viable 2nd trimester without gross abnormality identified. Follow-up examination advised to conduct formal anatomical survey It is advised that recommendations standardized by the [employer] in reference to screening be followed in concordance with findings noted on this exam. PAGE 1 Signed Report (CONTINUED) Name: LUIS ALBERTO GAFFNEY [facility] : [birth year] Age/S: 20 / F [address] [facility] Unit #: [id number] Loc: [place] [address] Phys: Tod Woo MD Acct: [id number] Dis Date: Status: REG ER PHONE #: [phone] Exam Date: 05/01/20202218 FAX #: [phone] Reason: VAGINAL BLEEDING/PELVIC PAIN EXAMS: CPT CODE: [id number] US PREG AFTER 1ST TRI 64625 (Continued) IMPRESSION: Presence of a single viable intrauterine gestation 2nd trimester without gross abnormalities noted at 2238 Reported and signed by: Julee Jimenez M.D. CC: Tod Woo MD Technologist: Alecia Pedersen Trnscb Date/Time: 05/01/2020 (2237) [email or web address] Orig Print D/T: S: 05/01/2020 (2240) Probe: PAGE 2 Signed ReportBASIC METABOLIC [id number] 22:19:00* Test Item Value Reference Range Interpretation Comme nts SODIUM (test code = NA) 139 mmol/L 136-145 N POTASSIUM (test code = K) 3.6 mmol/L 3.5-5.1 N CHLORIDE (test code = CL) 107.0 mmol/L 98-107 N CARBON DIOXIDE (test code = CO2) 22.0 mmol/L 21-32 N ANION GAP (test code = GAP) 13.6 10-20 N GLUCOSE (test code = GLU) 85 mg/dL 74-106 N BLOOD UREA NITROGEN (test code = BUN) 10 mg/dL 7-18 N GLOMERULAR FILTRATION RATE (test code = GFR) > 60 mL/min >=60 Estimated GFR by using Modified MDRD formula.Chronic kidney disease is defined as either kidney damageor GFR <60 mL/min/1.73 m2 for >3 months. CREATININE (test code = CREAT) 0.50 mg/dL 0.55-1.02 L Note change in reference range due to change in reagent. BUN/CREATININE RATIO (test code = BUN/CREA) 20.4 10-20 H CALCIUM (test code = CA) 9.5 mg/dL 8.5-10.1 N BASIC METABOLIC [id number] 22:16:00* Test Item Value Reference Range Interpretation Comme nts SODIUM (test code = NA) 139 mmol/L 136-145 N POTASSIUM (test code = K) 3.6 mmol/L 3.5-5.1 N CHLORIDE (test code = CL) 107.0 mmol/L 98-107 N CARBON DIOXIDE (test code = CO2) mmol/L 21-32 ANION GAP (test code = GAP) 10-20 GLUCOSE (test code = GLU) mg/dL 74-106 BLOOD UREA NITROGEN (test co de = BUN) mg/dL 7-18 GLOMERULAR FILTRATION RATE ( test code = GFR) mL/min >=60 CREATININE (test code = CREAT) mg/dL 0.55-1.02 BUN/CREATININE RATIO (test c ode = BUN/CREA) 10-20 CALCIUM (test code = CA) mg/dL 8.5-10.1 CBC W/O [id number] 22:01:00* Test Item Value Reference Range Interpretation Comme nts WHITE BLOOD CELL (test code = WBC) 12.2 K/mm3 4.5-12.5 N RED BLOOD CELL (test code = RBC) 3.82 mill/mm3 3.7-5.2 N HEMOGLOBIN (test code = HGB) 12.3 gram/dL 11.5-15.5 N HEMATOCRIT (test code = HCT) 36.0 % 36.0-46.0 N MEAN CELL VOLUME (test code = MCV) 94.2 fL 80-98 N MEAN CELL HGB (test code = MCH) 32.2 picogram 27.0-33.0 N MEAN CELL HGB CONCETRATION (test code = MCHC) 34.2 gram/dL 33.0-36.0 N RED CELL DISTRIBUTION WIDTH (test code = RDW) 13.0 % 11.6-16.2 N PLATELET COUNT (test code = PLT) 217 K/mm3 150-450 N MEAN PLATELET VOLUME (test c ode = MPV) 10.3 fL 6.7-11.0 N CHEM [id number] 08:30:00* Test Item Value Reference Range Interpretation Comme nts Magnesium Lvl (test code = M agnesium Lvl) 3.6 1.8-2.4 [facility] [id number] 09:51:00* Test Item Value Reference Range Interpretation Comme nts Magnesium Lvl (test code = M agnesium Lvl) 2.7 1.8-2.4 [facility] [id number] 01:49:00* Test Item Value Reference Range Interpretation Comme nts Magnesium Lvl (test code = M agnesium Lvl) 2.3 1.8-2.4 [id number] 21:07:00* Test Item Value Reference Range Interpretation Comme nts CO2 (test code = CO2) 15 24-32 [facility] [id number] 15:48:35* Test Item Value Reference Range Interpretation Comme nts eGFR (test code = eGFR) 81 [id number] 15:48:35* Test Item Value Reference Range Interpretation Comme nts Basophils (test code = Basophils) 0.7 See_Comment [Automated messa ge] The system which generated this result transmitted reference range: <=1.0. The reference range was not used to interpret this result as normal/abnormal. [facility] History and Physical Notes Date/Time Note Provider Source 2023-01-29 15:55:00 Patricio Busch MD: PERFORM, SIGN, VERIFYEvent Display: History and PhysicalAuthored Date: [id number] InformationGestational Age:Gestational Age (EGA) and EMORY * Note: EGA calculated as of 01/27/2023EDD: 02/03/2023 EGA*: 39 weeks Type: Authoritative Method Date: 11/03/2022 Method: Unknown (11/03/2022) Confirmation: Confirmed Description: -- Comments: -- Entered by: Sharon Ndiaye RN on 11/03/2022Other [facility] Calculations for this : No additional EMORY calculations have been recorded for this .History of Present IllnessMaternal history Maternal History (ST)Maternal History (ST)Maternal HistoryGravida: 2Para: 1SAB: 0IAB: 0Date/Time of Rupture of Membranes: 01/27/2023 11:43Amniotic Fluid Color: ClearMaternal Pre-Nicolasa LabsTranscribed ABO Blood Type: O+Transcribed Substance Abuse: NoneTranscribed GBS results: NegativeTranscribed HBsAg: NegativeTranscribed HIV Status: NegativeTranscribed HIV 3rd Trimester: NegativeTranscribed HIV 3rdTrimester Date: 01/25/2023Transcribed RPR/VDRL Results: NonreactiveTranscribed STD Results: NoneMaternal Risk FactorsMaternal Risk Factors Antepartum: None.Review of SystemsConstitutional: Negative.Respiratory: Negative.Cardiovascular: Negative.Gastrointestinal: Negative.Genitourinary: Negative.Gynecologic: Negative except as documented in history of present illness.Health StatusAllergies: (Active and Proposed Allergies Only)No Known Medication Allergies (Severity: Unknown severity, Onset: Unknown)Current medications:No qualifying data available,Medications (22) ActiveScheduled Meds: NoneUnscheduled Meds (9):01/27/23 Lactated Ringers Injection IV (Lactated Ringers (Bolus) IV) 1,000 mL IV ONCALL 1,000 ml/hr01/27/23 acetaminophen 1,000 mg PO KUMFQD25/17/23 atropine-diphenoxylate (atropine-diphenoxylate 0.025 mg-2.5 mg oral tablet) 2 tab PO NFJZWP09/17/23 carboprost 250 microgram IM WFKZWW03/17/23 ibuprofen 600 mg PO HISGJE12/17/23 methylergonovine 0.2 mg IM WKBBWD94/17/23 misoprostol 1,000 microgram IL CDRUJO29/17/23 oxytocin 10 unit IM ZGMYZS88/17/23 tranexamic acid + Sodium Chloride 0.9% IV 100 mL 1 gm IVPB ONCALL 440 ml/hrPRN Meds (8):01/27/23 benzocaine-menthol topical (Dermoplast Pain Relieving 20%-0.5% topical spray) 1 spray TOP QID01/27/23 butorphanol 1 mg IVP Q2H01/27/23 lidocaine (lidocaine 1% injectable solution) 0.25 mL INTRADERM PRN01/27/23 lidocaine (lidocaine 1%) 20 mL PERCUT PRN01/27/23 ondansetron 4 mg IVP Q8H01/27/23 oxyCODONE (oxyCODONE immediate release) 5 mg PO PRN01/27/23 oxyCODONE (oxyCODONE immediate release) 10 mg PO PRN01/27/23 terbutaline 0.25 mg SUB-Q PRNOne Time Meds: NoneContinuous Infusions (5):01/27/23 Lactated Ringers Injection IV 1,000 mL 1,000 mL 125 ml/hr01/27/23 oxytocin 10.02 unit (oxytocin 30 units in NS 500 mL (Bolus) IV 10.02 unit) 10.02 unit 334 ml/hr01/27/23 oxytocin 19.98 unit (oxytocin 30 units in NS 500 mL IV 19.98 unit) 19.98 unit 95 ml/hr01/27/23 oxytocin 30 unit (oxytocin 30 units in NS 500 mL (Titrate) IV 30 unit) 30 unit Fiscuxk44/17/23 oxytocin 30 unit (oxytocin 30 units in NS 500 mL (Titrate) IV 30 unit) 30 unit 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 --- titrate to uterine atonyProblem list:Problems (Active Problems Only) (SNOMED CT: 777337318, Onset: 04/29/22)Asthma (SNOMED CT: 972558025, Onset: --)Physical ExaminationVS/MeasurementsInpatient Vital signs (ST)Vitals Tmp(F) Pulse BP RR SpO2 DGF818/17 19:00 ---- 72 114/70 -- 99 ---01/27 18:45 ---- 83 105/68 -- 99 ---01/27 18:35 98.7 --- ----- -- --- ---01/27 18:30 ---- 88 111/60 -- 98 ---01/27 18:00 ---- 90 109/60 -- 98 ---24 Hr Tmax: 98.7F (37.06c) at 01/27 18:35 Vital Signs are the last 5 in the past 48 hours.HistoriesPregnancy HistoryPregnancy History (1,0,0,1) # 1 Baby 1 Outcome Date: 09/18/2020 Outcome: Live Outcome or Result: Vaginal Gender: -- Gest Age: 39 weeks 4 days Wt: -- Hospital: -- [facility] Labor: -- Child's Name: -- Baby's Father: --Past Medical History:ActiveAsthma ([id number])ResolvedPregnancy ([id number]): Onset on 12/16/2019 at 19 years. Resolved on 09/18/2020 at 20 years.Family History: Family History (ST)Father: HypertensionMother: Heart disease; Type 2 diabetes mellitusAunt: AsthmaProcedure history:No active procedure history items have been selected or recorded.Social HistoryAlcoholDetails: NeverTobaccoDetails: Use: Never smoker. Previous treatment: None. Ready to change: No. Household tobacco concerns: No. Tobacco smoke exposure: None. Did the Patient Smoke Cigarettes Anytime During the Last 365 Days? No. Cessation Counseling Provided? 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 category: 1.Maternal condition: Stable.PlanAdmit.Patricio Busch MDElectronically Signed: 01/27/23 19:59 [facility] Date/Time Note Provider Source 2023-03-30 16:39:00 [facility] ([facility]) EMERGENCY PROVIDER REPORT REPORT#:[id number] REPORT STATUS: Signed DATE:03/30/23 TIME: 1638 PATIENT: LUIS ALBERTO GAFFNEY UNIT #: [id number] ROOM/BED: AGE: 23 SEX: F PCP PHYS: Isai Zambrano MD SERVICE AUTHOR: Roselyn Jorgensen * ALL edits or amendments must be made on the electronic/computer document * Roselyn Jorgensen 03/30/23 1639: HPI-Extremity Prob Lower Free Text HPI Notes Free Text HPI Notes 23-year-old female with past medical history of heart murmur and asthma, presents to ED with constant, gradually worsening bilateral leg pain for 2 weeks. Patient denies any falls or direct trauma. Patient states she is standing for several hours due to her job ([employer]), states pain initially began to her right knee and bilateral feet and was seen at an outside facility and prescribed Toradol for pain. Patient states her symptoms continue to worsen , states for the past few days it has been too painful for her to bear weight/ ambulate for any prolonged periods of time, and also describes a tingling sensation in bilateral feet. Patient was seen by PCP today (Ellen MORSE), and sent to the ED. Patient denies any fever, chills, chest pain, shortness of breath, leg swelling, skin discoloration, back pain, pelvic pain, weakness, or any other complaints at this time. General Initial Greet Date/Time 03/30/23 1613 Presentation Chief Complaint Leg problem R, Leg problem L Risk-Extremity Prob Lower Risk Stratification Well's Criteria for DVT Well's Criteria for DVT Response Value Active Cancer? No 0 Immob Lower Extremity? No 0 Bed >3 Days/Surg Last 4 Weeks? No 0 Local Tend Deep Venous Sys? No 0 Entire Leg Swollen? No 0 Calf Swelling >3cm? No 0 Pit Edema in Symptomatic Leg? No 0 Collat Superficial Veins? No 0 Previous Documented DVT? No 0 Total 0 Well's DVT Score Unlikely, per Brandon DVT Deep Vein Thrombosis No risk factors Review of Systems ROS Statements All systems rev neg except as marked. Past Medical History - Adult Stated Complaint BOTH LEG PAIN/TROUBLE WALKING Allergies Coded Allergies: No Known Allergies (03/30/23) Home Medications Reported Medications ONDANSETRON (ZOFRAN) 8 MG PO Q12H PRN PRN NAUSEA/VOMITTING PNV WITH FE FUMARATE/FA () 1 TAB PO DAILY Past Medical History: Reports: Asthma. Additional Medical History palpitations Family History: Denies: CAD < 40 yrs old, Sudden cardiac . Alcohol Use Denies EtOH use Drug Use Denies recreational drugs Smoking status for patients 13 years old or older: Unknown,if ever smoked Physical Exam Vital Signs Vital Signs First Documented: Result Date Time Pulse Ox 99 03/30 1633 B/P 144/77 03/30 1633 B/P Mean 99 03/30 1633 O2 Delivery Room air 03/30 1633 Temp 36.8 03/30 1633 Pulse 98 03/30 1633 Resp 18 03/30 1633 Last Documented: Result Date Time Pulse Ox 98 03/30 1746 B/P 138/77 03/30 1746 B/P Mean 97 03/30 1746 Temp 36.7 03/30 174 Pulse 89 03/30 1746 Resp 18 03/30 1746 O2 Delivery Room air 03/30 1633 Review of Vital Signs Reviewed Focused PE General/Const General/Const Awake, Alert, No acute distress, Well appearing, Well developed Resp/Chest Respiratory/Chest Breath sounds NL, Breath sounds = bilat, No respiratory distress Cardiovascular Cardiovascular Heart rate NL, Regular rhythm, Heart sounds NL, Cap refill not delayed, Peripheral circulation NL MS Lower Extrem Lower Ext/Pelvis/MS Atraumatic, Inspection NL, Full range of motion, No swelling, No erythema, No deformity, Neurologic intact, Vascular intact, No compartment syndrome, No edema, Pelvis stable, Pelvis non-tender, diffuse tenderness of bilateral lower extremities, from knees distally to feet, with just light brush of hand to skin. No abrasion, no ecchymosis. DP/PT pulses 2+. MS Ankle/Foot Ankle/Foot Atraumatic, Inspection NL, Full range of motion, No swelling, No erythema, No deformity, Neurologic intact, Vascular intact, No edema Skin Skin Color NL, No rash, Warm, Dry, Intact Neurologic Neurologic Oriented X3, Speech NL, No motor deficits, No sensory deficits, Reflexes equal bilat Interpretation Diagnostics Lab Results Interpretation Results Laboratory Tests 03/30/231654: [Embedded Image Not Available] Laboratory Tests: 03/30 03/30 1655 1655 Chemistry Sodium (134 - 147 mEq/L) 138 Potassium (3.4 - 5.0 mEq/L) 4.0 Chloride (100 - 108 mEq/L) 109 H Carbon Dioxide (21 - 33 mEq/l) 25 Anion Gap (0 - 20) 8 BUN (7 - 18 mg/dL) 14 Creatinine (0.6 - 1.3 mg/dL) 0.9 Glomerular Filtr Rate (110 - 120) 92.1 L Glucose (70 - 110 mg/dL) 87 Calcium (8.0 - 10.5 mg/dL) 10.2 Total Creatine Kinase (34 - 145 Units/L) 36 C-Reactive Protein (<10.0 mg/L) < 4.0 Hematology WBC (4.5 - 11.0 x10 3/uL) 6.6 RBC (3.54 - 5.02 x10 6/uL) 4.36 Hgb (11.0 - 15.0 g/dL) 13.0 Hct (33.0 - 45.0 %) 40.3 MCV (81.0 - 99.0 fL) 92.4 MCH (27.0 - 33.0 pg) 29.8 MCHC (33.0 - 37.0 g/dL) 32.3 L RDW (11.5 - 14.5 %) 14.4 Plt Count (150 - 400 x10 3/uL) 263 MPV (7.0 - 9.0 fL) 11.4 H Neut % (Auto) (56.0 - 77.0 %) 60.3 Lymph % (Auto) (14.0 - 32.0 %) 28.9 [place] % (Auto) (4.8 - 9.0 %) 7.9 Eos % (Auto) (0.3 - 3.7 %) 2.1 Baso % (Auto) (0.0 - 2.0 %) 0.6 Neut # (Auto) (2.0 - 7.6 x10 3/uL) 3.96 Lymph # (Auto) (1.0 - 3.8 x10 3/uL) 1.90 [place] # (Auto) (0.1 - 0.8 x10 3/uL) 0.52 Eos # (Auto) (0.0 - 0.2 x10 3/uL) 0.14 Baso # (Auto) (0.0 - 0.2 x10 3/uL) 0.04 Abs Immat Gran (auto) (0.00 - 0.03 x10 3/uL) 0.01 Add Manual Diff NO Immature Gran % (0.0 - 2.0 %) 0.2 Nucleated RBC % (0 - 0 %) 0.0 Nucleated RBCs # (Man) (0.0 - 0.1 x10 3/uL) 0.00 ESR Westergren (0 - 20 mm/hr) 16 Re-Evaluation MDM Free Text MDM Notes Free Text MDM Notes 23-year-old female presents to ED with gradually worsening bilateral leg pain for 2 weeks. No trauma. Of note patient pain did begin after starting her new job at [employer] 1 month ago, states she is standing on her feet for prolonged hours. There is no evidence of trauma or external injury on exam, no evidence of cellulitis, compartments are soft. Neurovascular status is intact. Patient does not have any lower back pain or tenderness to suggest spine pathology. This does not appear consistent with DVT. No evidence of edema. Labs reviewed interpreted by me, no leukocytosis, inflammatory markers CRP and ESR are within normal limits. CPK is within normal limits. No significant electrolyte derangements. X-rays considered however patient does not have any specific injuries prior to pain, and normal ROM in appearance of all joints, and patient was able to ambulate during re-evaluation. Her reproducible pain with just light touch raises suspicion for neuropathic pain, will trial gabapentin. We also discussed that pain may be due to her shoe wear and discussed options for modification. Discussed plan for discharge on trial of gabapentin and close follow-up with PCP, and reviewed strict return precautions with the ED. Patient and mother are in agreement with this plan, verbalized understanding of all instructions ED Course Medication(s) Ordered Medication(s) Ordered: Central Nervous System Agents Sig/Justin Start time Last Medication Dose Route Stop Time Status Admin Gabapentin 100 MG X1ED STA 03/30 1724 DC 03/30 PO 03/30 1725 1745 Patient Discharge Departure Vital Signs/Condition Vital Signs First Documented: Result Date Time Pulse Ox 99 03/30 1633 B/P 144/77 03/30 1633 B/P Mean 99 03/30 1633 O2 Delivery Room air 03/30 1633 Temp 36.8 03/30 1633 Pulse 98 03/30 1633 Resp 18 03/30 1633 Last Documented: Result Date Time Pulse Ox 98 03/30 1746 B/P 138/77 03/30 1746 B/P Mean 97 03/30 1746 Temp 36.7 03/30 1746 Pulse 89 03/30 1746 Resp 18 03/30 1746 O2 Delivery Room air 03/30 1633 All vital signs available at the time of this entry have been reviewed. Condition Stable Clinical Impression Clinical Impression Primary Impression: Bilateral leg and foot pain Disposition Decision Discharge )( Discharged to Home Yes )( Time 1728 )( Date 03/30/23 Discharge/Care Plan Counseled Regarding Diagnosis, Lab results, Prescriptions, Need for follow-up, When to return to ED (Auto) Prescriptions Current Visit Scripts GABAPENTIN (NEURONTIN) 100 MG PO TID 7 Days #21 CAPS Patient Instructions ED Leg Spasm, ED Myalgias Additional Instructions Make sure you are stretching before and after work/periods of prolonged standing. Adjust your shoe wear to issue with heel and arch support. You may take gabapentin as it was prescribed as needed for pain. Follow-up with your primary care provider within 1 week, or sooner if no improvement of your symptoms. Return to ED for any severe change in your condition. Discharge Note I have spoken with the patient and/or caregivers. I have explained the patient's condition, diagnoses and treatment plan based on the information available to me at this time. I have answered the patient's and/or caregiver's questions and addressed any concerns. The patient and/or caregivers have as good an understanding of the patient's diagnosis, condition and treatment plan as can be expected at this point. The vital signs have been stable. The patient's condition is stable and appropriate for discharge from the emergency department. The patient will pursue further outpatient evaluation with the primary care physician or other designated or consulting physician as outlined in the discharge instructions. The patient and/or caregivers are agreeable to this plan of care and follow-up instructions have been explained in detail. The patient and/or caregivers have received these instructions in written format and have expressed an understanding of the discharge instructions. The patient and/or caregivers are aware that any significant change in condition or worsening of symptoms should prompt an immediate return to this or the closest emergency department or a call to 911. Shantel Contreras 04/01/23 0112: Patient Discharge Departure Supervising Physician Note MidLv Saw Pt Alone I have reviewed the PA/CHICKEN PICKER's note and plan of care. I was available for consultation as needed at all times during the patient's visit in the emergency department. I agree with the clinical impression, plan and disposition. at 1755 at 0113 RPT #:[id number] END OF REPORT HCACL 2023-01-07 22:55:00 [facility] ([facility]) OB Medical Screening Exam REPORT#:[id number] REPORT STATUS: Signed DATE:01/07/23 TIME: 2254 PATIENT: LUIS ALBERTO GAFFNEY UNIT #: [id number] ROOM/BED: : 00 AGE: 22 SEX: F ATTEND: Sintia Rowell MD ADM AUTHOR: Sintia Rowell MD * ALL edits or amendments must be made on the electronic/computer document * Medical Screening Exam Provider Attestation Attestation: The QMP MSE reviewed. MD notified at 22:30 MD at bedside at 22:30 pt is a 22 yo G2P!001 @ 36w2 presents with ctx. was seen in office and cervix was 1 cm at 10:30 am. pt reports has been having ctx every 15 mins, and then became every 5-10 mins. +FM. no lof/rom no vb Prior PNC with Dr. Acuna at 2333 RPT #:[id number] END OF REPORT [facility] 2023-01-07 22:55:00 [facility] ([facility]) LORNA Evaluation Note REPORT#:[id number] REPORT STATUS: Signed DATE:01/07/23 TIME: 2254 PATIENT: LUIS ALBERTO GAFFNEY UNIT #: [id number] ROOM/BED: : 00 AGE: 22 SEX: F ATTEND: Sintia Rowell MD ADM AUTHOR: Sintia Rowell MD * ALL edits or amendments must be made on the electronic/computer document * LORNA History Chief complaint: uterine contractions HPI: pt is a 22 yo G2P!001 @ 36w2 presents with ctx. was seen in office and cervix was 1 cm at 10:30 am. pt reports has been having ctx every 15 mins, and then became every 5-10 mins. +FM. no lof/rom no vb Prior PNC with Dr. Acuna history: : 2 Term: 1 : 0 Abortus: 0 Living children: 1 Complications (prev preg): none Past medical history: asthma (mild intermittent, prn MDI) Past surgical history: denies PSH Social history: no alcohol use, no tobacco use, no drug use Family history Relation not specified for: Family History: Diabetes Medications: Home Medications: Medication Dose/Rte/Freq Days Qty Entered Last Max Daily Dose Reviewed ONDANSETRON (ZOFRAN) 8 MG PO 01/07/23 01/07/23 Strength: 8 MG TAB Q12H PRN PRN 2243 2243 NAUSEA/VOMITTING PNV WITH FE 1 TAB PO DAILY 08/05/20 01/07/23 FUMARATE/FA 6419 2243 () Strength: 1 EACH TAB Allergies Coded Allergies: No Known Allergies (01/07/23) Review of Systems GI: Reports: abdominal pain. : Reports: pelvic pain, . Denies: vaginal bleeding, vaginal discharge. All systems rev neg: except as marked Objective General VS: First Documented: Result Date Time Pulse Ox 98 01/07 2218 B/P 123/69 01/07 2218 Temp 98.1 01/078 Pulse 85 01/07 2218 Resp 14 01/07 2218 B/P Mean 87.0 01/07 2218 Vital Signs Date Temp Pulse Resp B/P B/P Mean Pulse Ox FiO2 01/07 98.1 85 14 123/69 87.0 98 PATIENT WEIGHT: Weight (lb): 130 Weight (oz): Weight (kg): 59.100 Physical Exam HEENT: normocephalic w/o injury, pupils equal Lungs: unlabored breathing Neuro: Exam: alert, oriented x3, normal speech, normal gait Abdomen: gravid, soft, no abnormal tenderness, no guarding, no rebound tenderness Uterine activity: Monitor: toco Frequency (description): occasional Frequency (minutes): 22 Duration (seconds): 35 Intensity: mild Pelvic exam: Pelvis clinically adequate: yes Vulvar lesions: none Cervical/ exam: Dilatation (cm): 1 Effacement (%): 50 station: - 3 presentation: cephalic FHR evaluation: Baseline: 150 bpm Variability: moderate 6-25 bpm Accelerations: 15 X 15 Decelerations: none FHR category: category 1 Lower extremities: Edema: none Calf tenderness: negative Diagnosis, Assessment Plan Diagnosis, Assessment Plan Free Text A P: A: 22 yo @ 36w2 with flase labor P1. since this am exam, minimal to no cervical change 2. d/c home 3. NST cat 1, occ ctx, still irregular pattern d/w pt 4. ptl/labor precautions, kick counts advised 5. f/u with primary OB as scheduled in 6 days Plan discussed with: patient, nurse at 2336 RPT #:[id number] END OF REPORT [facility] 2022-05-12 00:14:00 [facility] ([facility] emergency provider report report#:[id number] report status: signed date:05/12/22 time: 0014 patient: luis alberto gaffney unit #: [id number] room/bed: age: 22 sex: f pcp phys: roslyn sanchez md service dt: 05/11/22 author: ariela guan md * all edits or amendments must be made on the electronic/computer document * hpi-knee prob/inj general initial greet date/time 05/11/222129 presentation chief complaint knee pain r hx obtained from patient onset occurred one week ago symptom duration since onset, constant progression since onset constant context of onset increased walking caused by no trauma by history location knee, r anterior quality aching radiation does not radiate severity: onset pain level 5 out of 10 severity: current pain level 7 out of 10 associated with denies: fever, neuro symptoms pre-arriv, numbness, rash, shortness of breath, swollen extremity, syncope, weakness. exacerbated by movement, weight-bearing relieved by nothing free text hpi notes free text hpi notes patient is a 22-year-old female who denies medical history other than chronic right knee pain for the past year presenting to the emergency department for worsening of right knee pain. has been worse for 1 week. no known trauma. is able to bear weight but does cause significant pain. no noted erythema of right knee though it is swollen. denies any fevers, chills, nausea, vomiting. otherwise has no other concerns. does advise has been walking more over the last week. review of systems ros statements all systems rev neg except as marked. focused review of systems constitutional denies: chills, fever, lethargy. musculoskeletal reports: joint pain, joint swelling. denies: extremity pain, extremity swelling , lumbar pain. skin denies: abrasion, laceration. neurologic denies: focal weakness, numbness. past medical history - adult stated complaint injury allergies coded allergies: no known allergies (05/18/21) home medications active scripts naproxen (naprosyn) 500 mg po bid prn prn pain naproxen (naprosyn) 500 mg po bid prn prn pain #20 tabs prov: 05/16/21 methocarbamol (robaxin) 500 mg po tid prn prn muscle spasm methocarbamol (robaxin) 500 mg po tid prn prn muscle spasm #15 tabs prov: 05/16/21 promethazine (phenergan) 25 mg po q6h prn prn nausea/vomiting promethazine (phenergan) 25 mg po q6h prn prn nausea/vomiting #20 tabs prov: 05/16/21 ketorolac (toradol) 10 mg po q6h prn prn pain ketorolac (toradol) 10 mg po q6h prn prn pain #20 tabs prov: 03/13/22 cephalexin (keflex) 500 mg po q6h cephalexin (keflex) 500 mg po q6h #28 caps prov: 03/13/22 ondansetron odt (zofran odt) 4 mg po q6h prn prn nausea/vomiting ondansetron odt (zofran odt) 4 mg po q6h prn prn nausea/vomiting #15 tabs prov: 03/13/22 acetaminophen/codeine (tylenol with codeine #3 300/30 mg) 1 tab po q6h prn prn pain acetaminophen/codeine (tylenol with codeine #3 300/30 mg) 1 tab po q6h prn prn pain #20 tabs prov: 09/19/20 nitrofurantoin/nitrofuran mac (macrobid) 100 mg po bid nitrofurantoin/nitrofuran mac (macrobid) 100 mg po bid #14 caps prov: 09/19/20 prednisone 60 mg po daily prednisone 60 mg po daily #15 tabs prov: 11/08/20 reported medications pnv with fe fumarate/fa () 1 tab po daily past medical history: reports: asthma. additional medical history palpitations family history: denies: cad < 40 yrs old, sudden cardiac . alcohol use denies etoh use drug use denies recreational drugs smoking status for patients 13 years old or older: never smoker physical exam vital signs vital signs first documented: result date time pulse ox 98 05/11 2138 b/p 132/87 05/11 2138 b/p mean 102 05/11 2138 o2 delivery room air 05/11 2138 temp 37.0 05/11 2138 pulse 73 05/11 2138 resp 16 05/11 2138 last documented: result date time pulse ox 98 05/11 2138 b/p 132/87 05/11 2138 b/p mean 102 05/11 2138 o2 delivery room air 05/11 2138 temp 37.0 05/11 2138 pulse 73 05/11 2138 resp 16 05/11 2138 review of vital signs reviewed focused pe general/const general/const awake, alert, well appearing resp/chest respiratory/chest no respiratory distress, equal bilateral chest rise cardiovascular cardiovascular heart rate nl, regular rhythm, peripheral circulation nl, pulses = bilaterally ms lower extrem lower ext/pelvis/ms atraumatic, full range of motion, no erythema, no deformity, neurologic intact, vascular intact, no edema, edema/swelling of r knee without erythema or warmth, ttp anteriorly skin skin color nl, warm, dry, intact, turgor nl, no swelling neurologic neurologic oriented x3, speech nl, no motor deficits, no sensory deficits interpretation diagnostics lab results interpretation results recent impressions: radiology - xr knee 3 v rt 05/11 2225 report impression - status: signed entered: 05/11/20222237 impression: unremarkable right knee impression by: [email or web address] - carolyn tracy m.d. re-evaluation mdm free text mdm notes free text mdm notes patient presents for evaluation of acute on chronic right knee pain. has associated swelling but otherwise no erythema, warmth, or systemic signs or symptoms of infection that would otherwise be concerning for septic arthritis. does not appear like gout. we will give ibuprofen for pain. x-ray to be obtained. unlikely to be tibial plateau fracture as no reported trauma. ultimately x-ray unremarkable. liudmila wrap. provided crutches. advised follow-up with orthopedic surgery. advised rice therapy and ibuprofen and tylenol use for pain. given strict return precautions. stable at time of discharge. ed course medication(s) ordered medication(s) ordered: central nervous system agents sig/justin start time last medication dose route stop time status admin ibuprofen 600 mg x1ed sta 05/11 2153 dc 05/11 po 05/113 acetaminophen 1,000 mg x1ed sta 05/11 2135 can po 05/11 2136 patient discharge departure vital signs/condition vital signs first documented: result date time pulse ox 98 05/11 2138 b/p 132/87 05/11 2138 b/p mean 102 05/11 2138 o2 delivery room air 05/11 2138 temp 37.0 05/11 2138 pulse 73 05/11 2138 resp 16 05/11 2138 last documented: result date time pulse ox 98 05/11 2138 b/p 132/87 05/11 2138 b/p mean 102 05/11 2138 o2 delivery room air 05/11 2138 temp 37.0 05/11 2138 pulse 73 05/11 2138 resp 16 05/11 2138 all vital signs available at the time of this entry have been reviewed. clinical impression clinical impression primary impression: knee effusion, right secondary impressions: knee pain, right disposition decision discharge )( discharged to home yes )( time 0016 )( date 05/12/22 discharge/care plan counseled regarding diagnosis, imaging studies, need for follow-up, when to return to ed patient instructions ed knee effusion additional instructions take 600 mg of ibuprofen every 6 hours as needed for pain. please follow-up with orthopedic surgery. continue to use crutches as needed if ultimately too painful to bear weight. you may also rest, ice, elevate for continued relief. you may use a knee brace. please also follow-up with pcp. return the emergency department with any worsening or new concerning signs and symptoms as discussed at bedside. referrals provider referral: parag hinojosa md address: [address] [place] [address] [address] [place] [address] provider referral: wenceslao saul md address: [address] [place] [address]. [id number] [address] provider referral: debby quiles md address: [address] [place] [address] [address] [place] [address] electronically signed by ariela guan md on 05/13/22 at 1414 rpt #:[id number] end of report [facility] 2022-03-13 20:45:00 [facility] ([facility]) EMERGENCY PROVIDER REPORT REPORT#:[id number] REPORT STATUS: Signed DATE:03/13/22 TIME: 2044 PATIENT: LUIS ALBERTO GAFFNEY UNIT #: [id number] ROOM/BED: AGE: 22 SEX: F PCP PHYS: Andres Hameed MD SERVICE AUTHOR: Danae Villegas * ALL edits or amendments must be made on the electronic/computer document * Danae Villegas 03/13/222044: HPI-Abd Pain F Under 40 Free Text HPI Notes Free Text HPI Notes 22-year-old female presents to the emergency room with complaint of flank pain x3 days. States that she has had kidney stones in the past this feels very similar. Denies General Initial Greet Date/Time 03/13/22 191 Provider in Triage Greet Note I have greeted and performed a focused rapid initial assessment of this patient. A comprehensive ED assessment and evaluation of the patient, analysis of all test results, and completion of the medical decision-making process will be conducted by additional ED providers. MSE Not Complete The medical screening exam is not complete. Further evaluation and/or treatment is required. The patient will be re-directed to the emergency department. Past Medical History - Adult Stated Complaint SHARP PAIN TO LEFT FLANK Allergies Coded Allergies: No Known Allergies (05/18/21) Home Medications Active Scripts NAPROXEN (NAPROSYN) 500 MG PO BID PRN PRN PAIN NAPROXEN (NAPROSYN) 500 MG PO BID PRN PRN PAIN #20 TABS Prov: 05/16/21 methocarbamoL (ROBAXIN) 500 MG PO TID PRN PRN muscle spasm methocarbamoL (ROBAXIN) 500 MG PO TID PRN PRN muscle spasm #15 TABS Prov: 05/16/21 PROMETHAZINE (PHENERGAN) 25 MG PO Q6H PRN PRN NAUSEA/VOMITING PROMETHAZINE (PHENERGAN) 25 MG PO Q6H PRN PRN NAUSEA/VOMITING #20 TABS Prov: 05/16/21 ACETAMINOPHEN/CODEINE (TYLENOL WITH CODEINE #3 300/30 MG) 1 TAB PO Q6H PRN PRN Pain ACETAMINOPHEN/CODEINE (TYLENOL WITH CODEINE #3 300/30 MG) 1 TAB PO Q6H PRN PRN Pain #20 TABS Prov: 09/19/20 NITROFURANTOIN/NITROFURAN MAC (MACROBID) 100 MG PO BID NITROFURANTOIN/NITROFURAN MAC (MACROBID) 100 MG PO BID #14 CAPS Prov: 09/19/20 predniSONE 60 MG PO DAILY predniSONE 60 MG PO DAILY #15 TABS Prov: 11/08/20 Reported Medications PNV WITH FE FUMARATE/FA () 1 TAB PO DAILY Past Medical History: Reports: Asthma. Additional Medical History palpitations Family History: Denies: CAD < 40 yrs old, Sudden cardiac . Alcohol Use Denies EtOH use Drug Use Denies recreational drugs Smoking status for patients 13 years old or older: Never Smoker Physical Exam Free Text PE Notes Free Text PE Notes GEN/CONST: awake, alert MS HEAD: normocephalic EYES: EOMI, no scleral icterus EARS/NOSE/THROAT: airway patent, mucous membranes moist MS NECK: supple, FROM RESPIRATORY/CHEST: no resp distress CARDIOVASCULAR: Normal color ABDOMEN/GI: no distension MS BACK: painless ROM, non-tender MS UPPER EXT: inspection nml, no deformity MS LOWER EXT: inspection nml, no deformity SKIN: warm, dry, intact NEURO: nml speech, no motor deficits Interpretation Diagnostics Lab Results Interpretation Results Laboratory Tests 03/13/22 2144: [Embedded Image Not Available] Laboratory Tests: 03/137 2144 2144 Chemistry Sodium (134 - 147 mEq/L) 136 Potassium (3.4 - 5.0 mEq/L) 3.5 Chloride (100 - 108 mEq/L) 101 Carbon Dioxide (21 - 33 mEq/l) 29 Anion Gap (0 - 20) 10 BUN (7 - 18 mg/dL) 9 Creatinine (0.6 - 1.3 mg/dL) 0.7 Glomerular Filtr Rate (110 - 120) 104.6 L Glucose (70 - 110 mg/dL) 89 Lactic Acid (0.4 - 1.9 mmol/L) 0.6 Calcium (8.0 - 10.5 mg/dL) 10.2 Total Bilirubin (0.0 - 1.0 mg/dL) 2.10 H Direct Bilirubin (0.0 - 0.30 MG/DL) 0.70 H Indirect Bilirubin (MG/DL) 1.40 AST (15 - 37 IUnit/L) 18 ALT (30 - 65 IUnit/L) 17 L Total Alk Phosphatase (20 - 125 IUnit/L) 102 Total Protein (6.4 - 8.2 g/dL) 8.9 H Albumin (3.4 - 5.0 g/dL) 4.80 Serum , Qual (NEGATIVE) SERUM NEGATIVE Hematology WBC (4.5 - 11.0 x10 3/uL) 14.0 H RBC (3.54 - 5.02 x10 6/uL) 4.64 Hgb (11.0 - 15.0 g/dL) 14.0 Hct (33.0 - 45.0 %) 42.8 MCV (81.0 - 99.0 fL) 92.2 MCH (27.0 - 33.0 pg) 30.2 MCHC (33.0 - 37.0 g/dL) 32.7 L RDW (11.5 - 14.5 %) 13.1 Plt Count (150 - 400 x10 3/uL) 191 MPV (7.0 - 9.0 fL) 11.1 H Neut % (Auto) (56.0 - 77.0 %) 81.0 H Lymph % (Auto) (14.0 - 32.0 %) 10.0 L [place] % (Auto) (4.8 - 9.0 %) 8.1 Eos % (Auto) (0.3 - 3.7 %) 0.2 L Baso % (Auto) (0.0 - 2.0 %) 0.3 Neut # (Auto) (2.0 - 7.6 x10 3/uL) 11.33 H Lymph # (Auto) (1.0 - 3.8 x10 3/uL) 1.40 [place] # (Auto) (0.1 - 0.8 x10 3/uL) 1.14 H Eos # (Auto) (0.0 - 0.2 x10 3/uL) 0.03 Baso # (Auto) (0.0 - 0.2 x10 3/uL) 0.04 Abs Immat Gran (auto) (0.00 - 0.03 x10 3/uL) 0.05 H Add Manual Diff NO Immature Gran % (0.0 - 2.0 %) 0.4 Nucleated RBC % (0 - 0 %) 0.0 Nucleated RBCs # (Man) (0.0 - 0.1 x10 3/uL) 0.00 03/13 2050 Urines Urine Color (YEL/STRAW) YULIA H Urine Appearance (CLEAR) CLOUDY H Urine pH (5.0 - 7.0) 5.0 Ur Specific [place] (1.005 - 1.030) 1.012 Urine Protein (NEGATIVE) 2+ H Urine Glucose (UA) (NEGATIVE) NEGATIVE Urine Ketones (NEGATIVE) TRACE H Urine Blood (NEGATIVE) 3+ H Urine Nitrite (NEGATIVE) POSITIVE H Urine Bilirubin (NEGATIVE) NEGATIVE Urine Urobilinogen (0.2 - 1.0 mg/dL) 0.2 Ur Leukocyte Esterase (NEGATIVE) 2+ H Urine RBC (0 - 3 RBC/HPF) >50 H Urine WBC (0 - 3 WBC/HPF) >50 H Ur Squamous Epith Cells (NONE SEEN /HPF) 0-5 Urine Bacteria (NONE SEEN /HPF) 1+ H Urine Mucus (NONE SEEN /LPF) TRACE Microbiology: Date/Time Procedure - Status Source Growth 03/13 2257 Blood Culture - COMP BLOOD 03/13 2257 Blood Culture - COMP BLOOD 03/13 2050 Urine Culture - COMP URINE ESCHERICHIA COLI Recent Impressions: CAT SCAN - CT ABD PELVIS W/O CONT 03/13 2244 Report Impression - Status: SIGNED Entered: 03/13/20222256 IMPRESSION: 1. Subtle left perinephric stranding. Correlate with urinalysis and renal function tests. 2. Bilateral nephrolithiasis. 3. Diffuse colonic stool. Correlate clinically for constipation. Impression By: Bety Mo M.D. Re-Evaluation MDM ED Course Medication(s) Ordered Medication(s) Ordered: Anti-Infective Agents Sig/Justin Start time Last Medication Dose Route Stop Time Status Admin Ceftriaxone Sodium 1,000 MG X1ED STA 03/13 2244 DC 03/13 Sodium Chloride 10 ML IV 07/01 2246 2258 Central Nervous System Agents Sig/Justin Start time Last Medication Dose Route Stop Time Status Admin Ketorolac 15 MG X1ED STA 03/13 2046 DC 03/13 Tromethamine IV 03/13 Morphine Sulfate 4 MG X1ED STA 03/13 2046 DC 03/13 IV 03/13 Electrolytic, Caloric, And Tisha Sig/Justin Start time Last Medication Dose Route Stop Time Status Admin Sodium Chloride 1,000 ML X1ED STA 03/13 2046 AC 03/13 IV 03/14 45 2141 Gastrointestinal Drugs Sig/Justin Start time Last Medication Dose Route Stop Time Status Admin Ondansetron HCl 4 MG X1ED STA 03/13 2046 DC 03/13 IV 03/13 2047 214 Trev Cedeno 03/13/22 2351: HPI-Abd Pain F Under 40 Free Text HPI Notes Free Text HPI Notes Pt with history of recurrent UTI during presents with B back pain, compresses L greater than R with urinary urgency for three days. Pt reports history of remote renal stones. Denies , hematuria,, vomiting. Presentation Chief Complaint Flank pain R, Flank pain L Hx Obtained From Patient Review of Systems ROS Statements All systems rev neg except as marked. Physical Exam Vital Signs Vital Signs First Documented: Result Date Time Pulse Ox 100 03/13 2042 B/P 116/80 03/13 2042 B/P Mean 92 03/13 2042 O2 Delivery Room air 03/13 2042 Temp 37.7 03/13 2042 Pulse 98 03/13 2042 Resp 18 03/13 2042 Last Documented: Result Date Time Pulse Ox 99 03/13 2322 B/P 100/59 03/13 2322 B/P Mean 72.8 03/13 2322 O2 Delivery Room air 03/13 2322 Temp 36.9 03/13 2322 Pulse 65 03/13 2322 Resp 18 03/13 2322 Review of Vital Signs Reviewed Focused PE General/Const General/Const Awake, Alert, No acute distress, Not toxic appearing Ears/Nose/Throat Ears/Nose/Throat Airway patent, Mucous membranes moist Resp/Chest Respiratory/Chest Breath sounds NL, Breath sounds = bilat, No respiratory distress, No rales Cardiovascular Cardiovascular Heart rate NL, Regular rhythm, Heart sounds NL, No gallop Abdomen/GI Abdomen/GI Soft, Non-tender, McBurney's non-tender, No guarding MS Back Back Inspection NL, Non-tender, No CVA tenderness Skin Skin Color NL, Warm, Dry Neurologic Neurologic Oriented X3, Speech NL, No motor deficits, No sensory deficits Interpretation Diagnostics Lab Results Interpretation Considerations Independ review imaging, Reviewed prior records Lab Imaging Statement Laboratory radiographic studies reviewed and considered in the medical decision-making. Re-Evaluation MDM )( Re-Evaluation/Progress #1 Time of Re-Eval 2352 )( Re-Eval Status Improved Re-Eval Abdomen Soft, Non-tender Eval Following Treatment Pt. feels better, Condition improved Pain Re-Evaluation Denies pain Patient Discharge Departure Vital Signs/Condition Vital Signs First Documented: Result Date Time Pulse Ox 100 03/13 2042 B/P 116/80 03/13 2042 B/P Mean 92 03/13 2042 O2 Delivery Room air 03/13 2042 Temp 37.7 03/13 2042 Pulse 98 03/13 2042 Resp 18 03/13 2042 Last Documented: Result Date Time Pulse Ox 99 03/13 2322 B/P 100/59 03/13 2322 B/P Mean 72.8 03/13 2322 O2 Delivery Room air 03/13 2322 Temp 36.9 03/13 2322 Pulse 65 03/13 2322 Resp 18 03/13 2322 All vital signs available at the time of this entry have been reviewed. Condition Improved Clinical Impression Clinical Impression Primary Impression: Acute pyelonephritis Disposition Decision Discharge )( Discharged to Home Yes )( Time 2352 )( Date 03/13/22 Discharge/Care Plan Counseled Regarding Diagnosis, Lab results, Imaging studies, Prescriptions, Need for follow-up, When to return to ED (Auto) Prescriptions Current Visit Scripts KETOROLAC (TORADOL) 10 MG PO Q6H PRN PRN PAIN KETOROLAC (TORADOL) 10 MG PO Q6H PRN PRN PAIN #20 TABS CEPHALEXIN (KEFLEX) 500 MG PO Q6H CEPHALEXIN (KEFLEX) 500 MG PO Q6H #28 CAPS ONDANSETRON ODT (ZOFRAN ODT) 4 MG PO Q6H PRN PRN NAUSEA/VOMITING ONDANSETRON ODT (ZOFRAN ODT) 4 MG PO Q6H PRN PRN NAUSEA/VOMITING #15 TABS Patient Instructions ED Pyelonephritis, Female (Adult) Arthur Meyer 03/20/222031: Risk-Abd Pain F Under 40 )( Ectopic Risk factors reviewed Patient Discharge Departure Discharge/Care Plan Referrals Provider Referral: Walter Maxwell DO Address: [address] [place] [address] Provider Referral: Michael Maxwell DO Address: [address] [place] [address] Provider Referral: Radha Vale MD Address: [address] [place] [address] Provider Referral: Bladimir Fontaine Jr, MD Address: [address] [facility] [address] [facility] [address] Provider Referral: Steven Gray MD Address: [address] [place] [address] Provider Referral: Yfn Liu MD Address: [address] [facility] [address] [place] [address] Supervising Physician Note MidLv Saw Pt Alone I have reviewed the PA/CHICKEN PICKER's note and plan of care. I was available for consultation as needed at all times during the patient's visit in the emergency department. I agree with the clinical impression, plan and disposition. at 1216 at 1431 at 2034 RPT #:[id number] END OF REPORT [facility] 2021-05-18 13:53:[address] [facility] ([facility]) EMERGENCY PROVIDER REPORT REPORT#:[id number] REPORT STATUS: Signed DATE:05/18/21 TIME: 1353 PATIENT: LUIS ALBERTO GAFFNEY UNIT #: [id number] ROOM/BED: AGE: 21 SEX: F PCP PHYS: Andres Hameed MD SERVICE AUTHOR: Yvonne Newsome CHICKEN PICKER * ALL edits or amendments must be made on the electronic/computer document * HPI-Palpit/Arrhyth Free Text HPI Notes Free Text HPI Notes 21-year-old female with a history of heart murmur and palpitations presents to the ER for evaluation of palpitations since Wednesday. Denies chest pain. Denies drug use. Patient is in no acute distress at time of my exam. General Confirmed Patient Yes Patient Type New patient Initial Greet Date/Time 05/18/21 1346 Presentation Chief Complaint Palpitations Hx Obtained From Patient Onset Occurred Days ago (3) Symptom Duration Since onset Review of Systems ROS Statements All systems rev neg except as marked. Focused Review of Systems Constitutional Denies: Lethargy, Weakness - generalized. Respiratory Denies: Cough, non-productive, Cough, productive, Hemoptysis, Shortness of breath. Cardiovascular Reports: Palpitations. Denies: Chest pain, Dyspnea on exertion, Edema, Syncope. GI Denies: Abdominal pain, Nausea, Vomiting. Skin Denies: Swelling. Neurologic Denies: Change LOC, Confusion, Dizziness, Focal weakness, Generalized weakness, Headache, Numbness, Syncope, Tingling. Past Medical History - Adult Stated Complaint PALPITATIONS Allergies Coded Allergies: No Known Allergies (05/18/21) Home Medications Active Scripts NAPROXEN (NAPROSYN) 500 MG PO BID PRN PRN PAIN NAPROXEN (NAPROSYN) 500 MG PO BID PRN PRN PAIN #20 TABS Prov: 05/16/21 methocarbamoL (ROBAXIN) 500 MG PO TID PRN PRN muscle spasm methocarbamoL (ROBAXIN) 500 MG PO TID PRN PRN muscle spasm #15 TABS Prov: 05/16/21 PROMETHAZINE (PHENERGAN) 25 MG PO Q6H PRN PRN NAUSEA/VOMITING PROMETHAZINE (PHENERGAN) 25 MG PO Q6H PRN PRN NAUSEA/VOMITING #20 TABS Prov: 05/16/21 ACETAMINOPHEN/CODEINE (TYLENOL WITH CODEINE #3 300/30 MG) 1 TAB PO Q6H PRN PRN Pain ACETAMINOPHEN/CODEINE (TYLENOL WITH CODEINE #3 300/30 MG) 1 TAB PO Q6H PRN PRN Pain #20 TABS Prov: 09/19/20 NITROFURANTOIN/NITROFURAN MAC (MACROBID) 100 MG PO BID NITROFURANTOIN/NITROFURAN MAC (MACROBID) 100 MG PO BID #14 CAPS Prov: 09/19/20 predniSONE 60 MG PO DAILY predniSONE 60 MG PO DAILY #15 TABS Prov: 11/08/20 Reported Medications PNV WITH FE FUMARATE/FA () 1 TAB PO DAILY Review of Nursing Notes Triage notes reviewed Past Medical History: Reports: Asthma. Additional Medical History palpitations Family History: Denies: CAD < 40 yrs old, Sudden cardiac . Alcohol Use Denies EtOH use Drug Use Denies recreational drugs Smoking status: Smoking status for patients 13 years old or older: Never Smoker Physical Exam Vital Signs Vital Signs First Documented: Result Date Time Pulse Ox 98 05/18 1408 B/P 95/64 05/18 1408 B/P Mean 74 05/18 1408 Temp 37.0 05/18 1408 Pulse 80 05/18 1408 Resp 18 05/18 1408 Last Documented: Result Date Time Pulse Ox 98 05/18 1500 B/P 98/62 05/18 1500 B/P Mean 74 05/18 1500 Temp 36.8 05/18 1500 Pulse 82 05/18 1500 Resp 18 05/18 1500 Review of Vital Signs Reviewed Focused PE General/Const General/Const Awake, Alert, No acute distress, Well appearing, Well developed , Well hydrated, Well nourished, Cooperative, Not toxic appearing MS Neck Neck Atraumatic, Supple, No meningismus, Full range of motion, No adenopathy, No swelling, Non-tender Resp/Chest Respiratory/Chest Atraumatic, Breath sounds NL, Breath sounds = bilat, No respiratory distress, No rales, No rhonchi, No wheezing Cardiovascular Cardiovascular Heart rate NL, Cap refill not delayed, Peripheral circulation NL Abdomen/GI Abdomen/GI Atraumatic, Soft, Non-tender MS Lower Extrem Lower Ext/Pelvis/MS Atraumatic, Inspection NL, No swelling, Non-tender Skin Skin Atraumatic, Color NL, No rash, Warm, Dry, Intact, Turgor NL, No swelling Neurologic Neurologic Oriented X3, Speech NL, No motor deficits, No sensory deficits, Gait NL Interpretation Diagnostics Lab Results Interpretation Results Laboratory Tests 05/18/21 143: [Embedded Image Not Available] Laboratory Tests: 05/18 1430 Chemistry Sodium (136 - 145 mmol/L) 142 Potassium (3.5 - 5.1 mmol/L) 3.6 Chloride (98 - 107 mmol/L) 109.0 H Carbon Dioxide (21 - 32 mmol/L) 25.0 Anion Gap (10 - 20) 11.6 BUN (7 - 18 mg/dL) 12 Creatinine (0.55 - 1.02 mg/dL) 0.90 Glomerular Filtr Rate (>=60 mL/min) > 60 BUN/Creatinine Ratio (10 - 20) 13.3 Glucose (74 - 106 mg/dL) 84 Calcium (8.5 - 10.1 mg/dL) 8.9 Magnesium (1.8 - 2.4 mg/dL) 1.8 Troponin I (0 - 45 pg/mL) < 2.500 TSH (0.36 - 3.74 uIU/mL) 0.574 Serum , Qual (NEGATIVE) NEGATIVE Hematology WBC (4.5 - 12.5 K/mm3) 6.9 RBC (3.7 - 5.2 mill/mm3) 4.43 Hgb (11.5 - 15.5 gram/dL) 13.0 Hct (36.0 - 46.0 %) 40.9 MCV (80 - 98 fL) 92.3 MCH (27.0 - 33.0 picogram) 29.3 MCHC (33.0 - 36.0 gram/dL) 31.8 L RDW (11.6 - 16.2 %) 12.6 Plt Count (150 - 450 K/mm3) 217 MPV (6.7 - 11.0 fL) 11.0 Recent Impressions: RADIOLOGY - XR CHEST 1 V 05/18 1400 Report Impression - Status: SIGNED Entered: 05/18/2021 1414 IMPRESSION: No radiographic evidence of acute cardiopulmonary process. LOCATION: [facility] Impression By: [email or web address] - [facility] Point of Care Testing Pulse Oximetry Pulse Ox % 98 On: Room air Interpretation Interpreted by me, Pulse oximetry normal ECG #1 Interpretation Date 05/18/21 Time 1454 NL ECG Interpretation Normal rate, Normal sinus rhythm, No STEMI Rate 85 Rhythm Ectopic beats - PVC's, sinus arrhythmia Re-Evaluation MDM Free Text MDM Notes Free Text MDM Notes Patient educated on diagnosis, lab results, imaging results, signs and symptoms of when to return to the ER, need for outpatient cardiology follow-up. Copy of lab and imaging results given to take to follow-up appointment. Instructed to return to the ER with new or worsening symptoms. Stable for DC. Patient Discharge Departure Vital Signs/Condition Vital Signs First Documented: Result Date Time Pulse Ox 98 05/18 1408 B/P 95/64 05/18 1408 B/P Mean 74 05/18 1408 Temp 37.0 / 1408 Pulse 80 / 1408 Resp 18 05/18 1408 Last Documented: Result Date Time Pulse Ox 98 05/18 1500 B/P 98/62 / 1500 B/P Mean 74 / 1500 Temp 36.8 / 1500 Pulse 82 / 1500 Resp 18 05/18 1500 All vital signs available at the time of this entry have been reviewed. Condition Stable Clinical Impression Clinical Impression Primary Impression: Palpitations Disposition Decision Discharge )( Discharged to Home Yes )( Time 1518 )( Date 05/18/21 Discharge/Care Plan Counseled Regarding Diagnosis, Lab results, Imaging studies, Need for follow-up, When to return to ED Patient Instructions ED Palpitations Referrals Jackie De León MD: 1-2 Days Discharge Note I have spoken with the patient and/or caregivers. I have explained the patient's condition, diagnoses and treatment plan based on the information available to me at this time. I have answered the patient's and/or caregiver's questions and addressed any concerns. The patient and/or caregivers have as good an understanding of the patient's diagnosis, condition and treatment plan as can be expected at this point. The vital signs have been stable. The patient's condition is stable and appropriate for discharge from the emergency department. The patient will pursue further outpatient evaluation with the primary care physician or other designated or consulting physician as outlined in the discharge instructions. The patient and/or caregivers are agreeable to this plan of care and follow-up instructions have been explained in detail. The patient and/or caregivers have received these instructions in written format and have expressed an understanding of the discharge instructions. The patient and/or caregivers are aware that any significant change in condition or worsening of symptoms should prompt an immediate return to this or the closest emergency department or a call to 911. Quality Measures BP F/U for HTN BP in normal range 12-Lead ECG for CP Performed documented Smoking Cessation Screened, non user at 0747 RPT #:[id number] END OF REPORT [facility] 2021-05-18 13:53:[address] [facility] ([facility]) EMERGENCY PROVIDER REPORT REPORT#:[id number] REPORT STATUS: Signed DATE:05/18/21 TIME: 1353 PATIENT: LUIS ALBERTO GAFFNEY UNIT #: [id number] ROOM/BED: AGE: 21 SEX: F PCP PHYS: Andres Hameed MD SERVICE AUTHOR: Yvonne Newsome CHICKEN PICKER * ALL edits or amendments must be made on the electronic/computer document * FredaJuan simeonsey 05/18/21 1353: HPI-Palpit/Arrhyth Free Text HPI Notes Free Text HPI Notes 21-year-old female with a history of heart murmur and palpitations presents to the ER for evaluation of palpitations since Wednesday. Denies chest pain. Denies drug use. Patient is in no acute distress at time of my exam. General Confirmed Patient Yes Patient Type New patient Initial Greet Date/Time 05/18/21 1346 Presentation Chief Complaint Palpitations Hx Obtained From Patient Onset Occurred Days ago (3) Symptom Duration Since onset Review of Systems ROS Statements All systems rev neg except as marked. Focused Review of Systems Constitutional Denies: Lethargy, Weakness - generalized. Respiratory Denies: Cough, non-productive, Cough, productive, Hemoptysis, Shortness of breath. Cardiovascular Reports: Palpitations. Denies: Chest pain, Dyspnea on exertion, Edema, Syncope. GI Denies: Abdominal pain, Nausea, Vomiting. Skin Denies: Swelling. Neurologic Denies: Change LOC, Confusion, Dizziness, Focal weakness, Generalized weakness, Headache, Numbness, Syncope, Tingling. Past Medical History - Adult Stated Complaint PALPITATIONS Allergies Coded Allergies: No Known Allergies (05/18/21) Home Medications Active Scripts NAPROXEN (NAPROSYN) 500 MG PO BID PRN PRN PAIN NAPROXEN (NAPROSYN) 500 MG PO BID PRN PRN PAIN #20 TABS Prov: 05/16/21 methocarbamoL (ROBAXIN) 500 MG PO TID PRN PRN muscle spasm methocarbamoL (ROBAXIN) 500 MG PO TID PRN PRN muscle spasm #15 TABS Prov: 05/16/21 PROMETHAZINE (PHENERGAN) 25 MG PO Q6H PRN PRN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 STA 11/07 2307 DC 11/08 IV 11/08 0006 0015 Patient Discharge Departure Vital Signs/Condition Vital Signs First Documented: Result Date Time Pulse Ox 97 11/07 2256 B/P 129/79 11/07 2256 B/P Mean 95 11/076 O2 Delivery Room air 11/07 2255 Temp 36.4 11/07 2255 Pulse 116 11/07 2256 Resp 20 11/07 2255 Last Documented: Result Date Time Pulse Ox 97 11/07 2256 B/P 129/79 11/07 225 B/P Mean 95 11/07 2255 O2 Delivery Room air 11/07 2255 Temp 36.4 11/07 2255 Pulse 116 11/07 225 Resp 20 11/07 2255 All vital signs available at the time of this entry have been reviewed. Leland Posadas 11/08/20 0211: HPI-General Illness Presentation Sudden in Onset? No Onset Occurred Days ago Symptom Duration Since onset Progression since Onset Unchanged Caused by No trauma by history Severity: Current No pain currently Exacerbated by Nothing Relieved by Nothing Review of Systems ROS Statements Complete sys rev neg except as marked. Review of Systems Constitutional Reports: Fever. Denies: Chills, Fatigue, Weakness - generalized. Respiratory Reports: Cough, non-productive, Shortness of breath, Wheezing. Denies: Cough, productive, Dyspnea on exertion. Cardiovascular Denies: Chest pain, Dyspnea on exertion, Edema, Syncope. GI Denies: Abdominal pain, Nausea, Vomiting. Musculoskeletal Denies: Extremity pain, Extremity swelling. Skin Denies: Rash, Swelling. Physical Exam Vital Signs Review of Vital Signs Reviewed Physical Exam General/Const General/Const Awake, Alert, Well appearing MS Head Head Normocephalic Resp/Chest Respiratory/Chest Breath sounds NL, Breath sounds = bilat, No respiratory distress, No rales, No rhonchi, No wheezing Cardiovascular Cardiovascular Heart rate NL, Regular rhythm, Heart sounds NL, Cap refill not delayed, Peripheral circulation NL Lymphatic Lymphatic No gross adenopathy MS Upper Extrem Upper Extremity/MS Inspection NL, No swelling, Non-tender, No erythema, No deformity, Neurologic intact, Vascular intact, No clubbing/cyanosis MS Wrist/Hand Wrist/Hand Inspection NL, No swelling, No erythema, Non-tender, No deformity, Neurologic intact, Vascular intact, No clubbing/cyanosis Skin Skin Color NL, Warm, Dry, Turgor NL Neurologic Neurologic Oriented X3, Speech NL, No motor deficits, No sensory deficits Interpretation Diagnostics Point of Care Testing Pulse Oximetry Pulse Ox % 97 On: Room air Interpretation Interpreted by me Re-Evaluation MDM Re-Evaluation/Progress #1 Text/Dict Note Well-appearing. Lungs clear to auscultation. States she feels better. No acute symptoms. Speaking full sentences. No additional complaints. Time of Re-Eval 0200 Re-Eval Status Resolved Patient Discharge Departure Clinical Impression Clinical Impression Primary Impression: Asthma exacerbation Secondary Impressions: Bronchitis, Hypokalemia Disposition Decision Discharge )( Discharged to Home Yes )( Time 0211 )( Date 11/08/20 Discharge/Care Plan Counseled Regarding Diagnosis, Lab results, Imaging studies, Prescriptions, Need for follow-up, When to return to ED (Auto) Prescriptions Current Visit Scripts predniSONE 60 MG PO DAILY predniSONE 60 MG PO DAILY #15 TABS UNTIL FINISHED (5 DAYS) Patient Instructions ED Asthma, Acute (Adult), ED Bronchitis, No Antibiotic ( Adult) Referrals [facility]: 2-3 Days Supervising Physician Note MidLv/Doc Saw Pt 1 I have seen and evaluated this patient and agree with the nurse practitioner or physician hr assistant's documentation and assessment. Documentation of one or more elements of my assessment are included in the medical record. at 0236 RPT #:[id number] END OF REPORT [facility] 2020-11-07 23:08:[address] [facility] ([facility]) EMERGENCY PROVIDER REPORT REPORT#:[id number] REPORT STATUS: Signed DATE:11/07/20 TIME: 2307 PATIENT: LUIS ALBERTO GAFFNEY UNIT #: [id number] ROOM/BED: AGE: 20 SEX: F PCP PHYS: Andres Hameed MD SERVICE AUTHOR: Rupal Roque [employer]ICK[employer]ER * ALL edits or amendments must be made on the electronic/computer document * Rupal Roque 11/07/202307: HPI-General Illness Free Text HPI Notes Free Text HPI Notes 20 year old female who comes in to the ER with a complaint of fever, cough, nasal congestion, cough, and sob. Patient denies injury or trauma. Patient admits that and daughter have similar symptoms. Patient states that symptoms started three days ago. Patient states that symptoms waxe and wean and have progressively worsened over the last 24 hours. Patient admits that symptoms are exacerbated by deep breaths and states symptoms are improved by her albuterol inhaler. Patient admits to intermittent wheezing. Patient admits to a pmh of Asthma and states that she did an inhaler treatment area captain to ER with no improvement. Patient denies headache, dizziness, weakness, chest pain, abdominal pain, n/v/d, urinary symptoms, or rash. PMH of Asthma. Patient denies recent travel, exposure to anybody with recent travel, or COVID 19. General Confirmed Patient Yes Patient Type New patient Initial Greet Date/Time 11/07/202253 PCP no pcp COVID-19 Risk [facility] [place] Risk Denies Age 65 or older, Denies Signif co-morbidity, Denies Exp to person + for COVID, Reports Exp to PUI, Denies Travel from affected area, Reports Lower resp symptoms, Denies Fever, Denies Other Presentation Chief Complaint Fever, Shortness of breath, Wheezing Hx Obtained From Patient Sudden in Onset? No Onset Occurred Days ago (3) Symptom Duration Since onset Progression since Onset Gradually worsening Caused by No trauma by history Location Chest Quality Aching, Painful Radiation No: Does not radiate. Severity: Onset Mild Severity: Current Mild Associated with Reports: Cough, Shortness of breath. Denies: Abdominal pain, Anorexia, Aura, Bleeding, Bruising, Chest pain, Congestion, Diaphoresis, Difficulty breathing, Difficulty swallowing, Discharge, Dizziness, Fever, Headache, Inability to bear weight, Itching, Joint pain, Loss of consciousness, Nasal discharge, Nausea, Neck pain, Numb extremities, Off balance, Pain, Pain on walking, Rash, Speech abnormal, Syncope, Vision change, Vomiting, Weak extremity, Weakness. Associated Other Pt denies other symptoms Exacerbated by Nothing Relieved by Nothing Context Immunization Status General All up to date Recent Healthcare No recent doctor visit, No recent hospitalization Similar Sx Previous No /Sexual Hx Menstrual Cycle Patient unsure Review of Systems ROS Statements All systems rev neg except as marked. Review of Systems Constitutional Reports: Fever. Respiratory Reports: Cough, non-productive, Shortness of breath, Wheezing. Past Medical History - Adult Stated Complaint ASTHMA ATTACK Allergies Coded Allergies: No Known Allergies (08/05/20) Home Medications Active Scripts ACETAMINOPHEN/CODEINE (TYLENOL WITH CODEINE #3 300/30 MG) 1 TAB PO Q6H PRN PRN Pain ACETAMINOPHEN/CODEINE (TYLENOL WITH CODEINE #3 300/30 MG) 1 TAB PO Q6H PRN PRN Pain #20 TABS Prov: 09/19/20 NITROFURANTOIN/NITROFURAN MAC (MACROBID) 100 MG PO BID NITROFURANTOIN/NITROFURAN MAC (MACROBID) 100 MG PO BID #14 CAPS Prov: 09/19/20 Reported Medications PNV WITH FE FUMARATE/FA () 1 TAB PO DAILY Review of Nursing Notes Rev avail, and agree, Triage notes reviewed Pt reports no significant: Past surgical history Past Medical History: Reports: Asthma. Alcohol Use Denies EtOH use Drug Use Denies recreational drugs Smoking status: Smoking status for patients 13 years old or older: Never Smoker Ambulatory Status Independent Physical Exam Vital Signs Review of Vital Signs Reviewed Physical Exam General/Const General/Const Awake, Alert, Well appearing MS Head Head Normocephalic Eyes Eyes PERRL Ears/Nose/Throat Ears/Nose/Throat Airway patent, Mucous membranes moist, Pharynx NL MS Neck Neck Supple, No meningismus, Full range of motion, No swelling, Non-tender, No masses Resp/Chest Respiratory/Chest No retractions Resp Distress/Stridor Resp distress mild. Diminished Breath Sounds Decreased L. Wheezing/Retractions Wheeze insp/exp diffuse. Cardiovascular Cardiovascular Regular rhythm, Heart sounds NL, Cap refill not delayed, Peripheral circulation NL Heart Rate/Rhythm Tachycardia. Abdomen/GI Abdomen/GI Soft, Non-tender, No guarding, No rebound MS Back Back Inspection NL, Painless range of motion, Non-tender, No CVA tenderness MS Upper Extrem Upper Extremity/MS Inspection NL, No swelling, Non-tender, No erythema, No deformity, Neurologic intact, Vascular intact, No clubbing/cyanosis MS Wrist/Hand Wrist/Hand Inspection NL, No swelling, No erythema, Non-tender, No deformity, Neurologic intact, Vascular intact, No clubbing/cyanosis MS Lower Extrem Lower Ext/Pelvis/MS Inspection NL, No swelling, Non-tender, No erythema, No deformity, Neurologic intact, Vascular intact, No edema MS Ankle/Foot Ankle/Foot Inspection NL, No swelling, No erythema, Non-tender, No deformity, Neurologic intact, Vascular intact, No edema Skin Skin Color NL, Warm, Dry, Turgor NL Neurologic Neurologic Oriented X3, Speech NL, No motor deficits, No sensory deficits Psychiatric Psychiatric Affect NL, Mood NL, Thought content NL Interpretation Diagnostics Point of Care Testing Pulse Oximetry Pulse Ox % 97 On: Room air Interpretation Interpreted by me Time 2256 Re-Evaluation MDM Re-Evaluation/Progress #1 Time of Re-Eval 0020 Re-Eval Status Unchanged Eval Following Treatment Condition unchanged Pain Re-Evaluation Denies pain Exam Post Tx - General Active, Alert, Vital signs stable Exam Post Tx - Sys Review Mental status baseline Plan Post Re-Eval Plan observe Differential Diagnosis Differential Diagnosis Tonsillitis: acute, Upper resp infection Patient Discharge Departure Vital Signs/Condition Condition Stable Clinical Impression Clinical Impression Primary Impression: URI (upper respiratory infection) Discharge/Care Plan Counseled Regarding Diagnosis, Lab results, Imaging studies, Prescriptions (Auto) Prescriptions Current Visit Scripts predniSONE 60 MG PO DAILY predniSONE 60 MG PO DAILY #15 TABS UNTIL FINISHED (5 DAYS) Pt/Provider Handoff Handoff Note This patient's care has been transferred to and accepted by [Cuauhtemoc WOODRUFF]. We discussed: the patient's chief complaint; labs and imaging that have been completed and those that are still pending; procedures that have been completed and those remaining to be done; any treatment provided and the patient's response to treatment; any significant change in condition; input from consultants if any; the treatment plan prior to the transfer of care. The accepting physician will follow up on all pending labs and imaging and make any necessary changes to the current impression and/or treatment plan. The accepting physician is now responsible for the patient's care and final disposition. Quality Measures BP F/U for HTN Referred for BP f/u < 4wk, F/u with PCP/other doc Pharyngitis Testing Group A Strep test doc Current Medications Attest: Medication review Smoking Cessation Screened, non user Tobacco Screening/Cessation 18 years or older, Denies tobacco use Leland Posadas 11/08/20 0211: HPI-General Illness Presentation Sudden in Onset? No Onset Occurred Days ago Symptom Duration Since onset Progression since Onset Unchanged Caused by No trauma by history Severity: Current No pain currently Exacerbated by Nothing Relieved by Nothing Review of Systems ROS Statements Complete sys rev neg except as marked. Review of Systems Constitutional Reports: Fever. Denies: Chills, Fatigue, Weakness - generalized. Respiratory Reports: Cough, non-productive, Shortness of breath, Wheezing. Denies: Cough, productive, Dyspnea on exertion. Cardiovascular Denies: Chest pain, Dyspnea on exertion, Edema, Syncope. GI Denies: Abdominal pain, Nausea, Vomiting. Musculoskeletal Denies: Extremity pain, Extremity swelling. Skin Denies: Rash, Swelling. Physical Exam Vital Signs Vital Signs First Documented: Result Date Time Pulse Ox 97 11/07 2255 B/P 129/79 11/07 2255 B/P Mean 95 11/07 2255 O2 Delivery Room air 11/07 2255 Temp 36.4 11/07 2255 Pulse 116 11/07 2255 Resp 20 11/07 2255 Last Documented: Result Date Time Pulse Ox 97 11/07 2255 B/P 129/79 11/07 2255 B/P Mean 95 11/07 2255 O2 Delivery Room air 11/07 2255 Temp 36.4 11/07 2255 Pulse 116 11/07 2255 Resp 20 11/07 2255 Review of Vital Signs Reviewed Physical Exam General/Const General/Const Awake, Alert, Well appearing MS Head Head Normocephalic Resp/Chest Respiratory/Chest Breath sounds NL, Breath sounds = bilat, No respiratory distress, No rales, No rhonchi, No wheezing Cardiovascular Cardiovascular Heart rate NL, Regular rhythm, Heart sounds NL, Cap refill not delayed, Peripheral circulation NL Lymphatic Lymphatic No gross adenopathy MS Upper Extrem Upper Extremity/MS Inspection NL, No swelling, Non-tender, No erythema, No deformity, Neurologic intact, Vascular intact, No clubbing/cyanosis MS Wrist/Hand Wrist/Hand Inspection NL, No swelling, No erythema, Non-tender, No deformity, Neurologic intact, Vascular intact, No clubbing/cyanosis Skin Skin Color NL, Warm, Dry, Turgor NL Neurologic Neurologic Oriented X3, Speech NL, No motor deficits, No sensory deficits Interpretation Diagnostics Lab Results Interpretation Results Laboratory Tests 11/07/202323: [Embedded Image Not Available] Laboratory Tests: 11/07 232 Chemistry Sodium (136 - 145 mmol/L) 139 Potassium (3.5 - 5.1 mmol/L) 3.1 L Chloride (98 - 107 mmol/L) 109.0 H Carbon Dioxide (21 - 32 mmol/L) 24.0 Anion Gap (10 - 20) 9.1 L BUN (7 - 18 mg/dL) 10 Creatinine (0.55 - 1.02 mg/dL) 0.60 Glomerular Filtr Rate (>=60 mL/min) > 60 BUN/Creatinine Ratio (10 - 20) 15.4 Glucose (74 - 106 mg/dL) 102 Lactic Acid (0.4 - 1.9 mmol/L) 1.2 Calcium (8.5 - 10.1 mg/dL) 9.8 Ferritin (8 - 388 ng/mL) 21 Total Bilirubin (0.0 - 1.0 mg/dL) 0.50 Direct Bilirubin (0.0 - 0.20 mg/dL) 0.20 AST (15 - 37 IUnit/L) 24 ALT (12 - 78 IUnit/L) 24 Total Alk Phosphatase (45 - 117 IUnit/L) 81 Lactate Dehydrogenase (84 - 246 IUnit/L) 135 Troponin I (0 - 0.045 ng/mL) 0.013 B-Natriuretic Peptide (0 - 100 pgram/mL) 16.6 Total Protein (6.4 - 8.2 gram/dL) 7.6 Albumin (3.4 - 5.0 g/dL) 4.3 Globulin (2.7 - 4.2 gram/dL) 3.3 Albumin/Globulin Ratio (0.75 - 1.50) 1.3 Lipase (12.00 - 57.00 U/L) 39 Hematology WBC (4.5 - 12.5 K/mm3) 6.2 RBC (3.7 - 5.2 mill/mm3) 4.60 Hgb (11.5 - 15.5 gram/dL) 14.2 Hct (36.0 - 46.0 %) 42.2 MCV (80 - 98 fL) 91.7 MCH (27.0 - 33.0 picogram) 30.9 MCHC (33.0 - 36.0 gram/dL) 33.6 RDW (11.6 - 16.2 %) 12.8 RDW Std Deviation (37.0 - 51.0 fL) 42.6 Plt Count (150 - 450 K/mm3) 218 MPV (6.7 - 11.0 fL) 11.2 H Neut % (Auto) (39.0 - 69.0 %) 51.0 Lymph % (Auto) (25.0 - 55.0 %) 35.3 [place] % (Auto) (0.0 - 10.0 %) 9.2 Eos % (Auto) (0.0 - 5.0 %) 3.4 Baso % (Auto) (0.0 - 1.0 %) 0.6 Neut # (Auto) (1.8 - 7.7 K/mm3) 3.16 Lymph # (Auto) (1.0 - 5.0 K/mm3) 2.19 [place] # (Auto) (0 - 0.8 K/mm3) 0.57 Eos # (Auto) (0.0 - 0.5 K/mm3) 0.21 Baso # (Auto) (0.0 - 0.2 K/mm3) 0.04 Nucleated RBC % (0 - 0 %) 0.0 Nucleated RBCs # (Man) (0.0 - 0.1 K/mm3) 0.00 Serology SARS-CoV-2 Ag (Rapid) NEGATIVE Streptococcus sp PCR (NEGATIVE) NEGATIVE FOR G/C Strep pneumoniae (PCR) (NEGATIVE) NEGATIVE FOR GRP A 11/07 2322 Chemistry C-Reactive Protein (0 - 0.3 mg/dL) < 0.40 H Microbiology: Date/Time Procedure - Status Source Growth 11/07 2323 Group A Streptococcus Screen (LYNETTE) - COMP THROAT 11/07 2322 Influenza Virus Type B Antigen - COMP NASAL 11/07 2322 Influenza Virus Type A Antigen - COMP NASAL 11/07 2322 Blood Culture - RECD BLOOD 11/07 2322 Blood Culture - RECD BLOOD Recent Impressions: RADIOLOGY - XR CHEST 1 V 11/07 2309 Report Impression - Status: SIGNED Entered: 11/07/20202331 IMPRESSION: No acute cardiopulmonary disease. Impression By: Ayden - Marium Kaur MD Point of Care Testing Pulse Oximetry Pulse Ox % 97 On: Room air Interpretation Interpreted by me Re-Evaluation MDM Re-Evaluation/Progress #1 Text/Dict Note Well-appearing. Lungs clear to auscultation. States she feels better. No acute symptoms. Speaking full sentences. No additional complaints. Time of Re-Eval 0200 Re-Eval Status Resolved ED Course Medication(s) Ordered Medication(s) Ordered: Anti-Infective Agents Sig/Justin Start time Last Medication Dose Route Stop Time Status Admin Azithromycin 500 MG X1ED STA 11/077 DC 11/08 Sodium Chloride 250 ML IV 11/08 0006 0015 Ceftriaxone Sodium 1,000 MG X1ED STA 11/077 DC 11/08 Sodium Chloride 10 ML IV 11/07 2308 0015 Central Nervous System Agents Sig/Justin Start time Last Medication Dose Route Stop Time Status Admin Acetaminophen 1,000 MG X1ED STA 11/077 DC 11/08 PO 11/07 2307 0015 Electrolytic, Caloric, And Tisha Sig/Justin Start time Last Medication Dose Route Stop Time Status Admin Potassium Chloride 40 MEQ X1ED STA 11/08 0138 DC 11/08 PO 11/08 013 0219 Sodium Chloride 500 ML X1ED STA 11/077 DC 11/08 IV 11/08 0006 0015 Patient Discharge Departure Vital Signs/Condition Vital Signs First Documented: Result Date Time Pulse Ox 97 11/07 2255 B/P 129/79 11/07 2255 B/P Mean 95 11/07 2255 O2 Delivery Room air 11/07 2255 Temp 36.4 11/07 2255 Pulse 116 11/07 2255 Resp 20 11/07 2255 Last Documented: Result Date Time Pulse Ox 97 11/07 2255 B/P 129/79 11/07 2255 B/P Mean 95 11/07 2255 O2 Delivery Room air 11/07 2255 Temp 36.4 11/07 2255 Pulse 116 11/07 2255 Resp 20 11/07 2255 All vital signs available at the time of this entry have been reviewed. Disposition Decision Discharge )( Discharged to Home Yes )( Time 021 )( Date 11/08/20 Discharge/Care Plan Counseled Regarding Diagnosis, Lab results, Imaging studies, Prescriptions, Need for follow-up, When to return to ED Patient Instructions ED Asthma, Acute (Adult), ED Bronchitis, No Antibiotic ( Adult) Referrals [facility]: 2-3 Days Supervising Physician Note MidLv/Doc Saw Pt 1 I have seen and evaluated this patient and agree with the nurse practitioner or physician hr assistant's documentation and assessment. Documentation of one or more elements of my assessment are included in the medical record. at 0236 RPT #:[id number] END OF REPORT [facility] 2020-11-07 23:08:[address] [facility] ([facility]) EMERGENCY PROVIDER REPORT REPORT#:[id number] REPORT STATUS: Signed DATE:11/07/20 TIME: 2307 PATIENT: LUIS ALBERTO GAFFNEY UNIT #: [id number] ROOM/BED: AGE: 20 SEX: F PCP PHYS: Andres Hameed MD SERVICE AUTHOR: Rupal Roque CHICKEN PICKER * ALL edits or amendments must be made on the electronic/computer document * Rupal Roque 11/07/20 2308: HPI-General Illness Free Text HPI Notes Free Text HPI Notes 20 year old female who comes in to the ER with a complaint of fever, cough, nasal congestion, cough, and sob. Patient denies injury or trauma. Patient admits that and daughter have similar symptoms. Patient states that symptoms started three days ago. Patient states that symptoms waxe and wean and have progressively worsened over the last 24 hours. Patient admits that symptoms are exacerbated by deep breaths and states symptoms are improved by her albuterol inhaler. Patient admits to intermittent wheezing. Patient admits to a pmh of Asthma and states that she did an inhaler treatment area captain to ER with no improvement. Patient denies headache, dizziness, weakness, chest pain, abdominal pain, n/v/d, urinary symptoms, or rash. PMH of Asthma. Patient denies recent travel, exposure to anybody with recent travel, or COVID 19. General Confirmed Patient Yes Patient Type New patient Initial Greet Date/Time 11/07/20 3635 PCP no pcp COVID-19 Risk [facility] [place] Denies Age 65 or older, Denies Signif co-morbidity, Denies Exp to person + for COVID, Reports Exp to PUI, Denies Travel from affected area, Reports Lower resp symptoms, Denies Fever, Denies Other Presentation Chief Complaint Fever, Shortness of breath, Wheezing Hx Obtained From Patient Sudden in Onset? No Onset Occurred Days ago (3) Symptom Duration Since onset Progression since Onset Gradually worsening Caused by No trauma by history Location Chest Quality Aching, Painful Radiation No: Does not radiate. Severity: Onset Mild Severity: Current Mild Associated with Reports: Cough, Shortness of breath. Denies: Abdominal pain, Anorexia, Aura, Bleeding, Bruising, Chest pain, Congestion, Diaphoresis, Difficulty breathing, Difficulty swallowing, Discharge, Dizziness, Fever, Headache, Inability to bear weight, Itching, Joint pain, Loss of consciousness, Nasal discharge, Nausea, Neck pain, Numb extremities, Off balance, Pain, Pain on walking, Rash, Speech abnormal, Syncope, Vision change, Vomiting, Weak extremity, Weakness. Associated Other Pt denies other symptoms Exacerbated by Nothing Relieved by Nothing Context Immunization Status General All up to date Recent Healthcare No recent doctor visit, No recent hospitalization Similar Sx Previous No /Sexual Hx Menstrual Cycle Patient unsure Review of Systems ROS Statements All systems rev neg except as marked. Review of Systems Constitutional Reports: Fever. Respiratory Reports: Cough, non-productive, Shortness of breath, Wheezing. Past Medical History - Adult Stated Complaint ASTHMA ATTACK Allergies Coded Allergies: No Known Allergies (08/05/20) Home Medications Active Scripts ACETAMINOPHEN/CODEINE (TYLENOL WITH CODEINE #3 300/30 MG) 1 TAB PO Q6H PRN PRN Pain ACETAMINOPHEN/CODEINE (TYLENOL WITH CODEINE #3 300/30 MG) 1 TAB PO Q6H PRN PRN Pain #20 TABS Prov: 09/19/20 NITROFURANTOIN/NITROFURAN MAC (MACROBID) 100 MG PO BID NITROFURANTOIN/NITROFURAN MAC (MACROBID) 100 MG PO BID #14 CAPS Prov: 09/19/20 Reported Medications PNV WITH FE FUMARATE/FA () 1 TAB PO DAILY Review of Nursing Notes Rev avail, and agree, Triage notes reviewed Pt reports no significant: Past surgical history Past Medical History: Reports: Asthma. Alcohol Use Denies EtOH use Drug Use Denies recreational drugs Smoking status: Smoking status for patients 13 years old or older: Never Smoker Ambulatory Status Independent Physical Exam Vital Signs Review of Vital Signs Reviewed Physical Exam General/Const General/Const Awake, Alert, Well appearing MS Head Head Normocephalic Eyes Eyes PERRL Ears/Nose/Throat Ears/Nose/Throat Airway patent, Mucous membranes moist, Pharynx NL MS Neck Neck Supple, No meningismus, Full range of motion, No swelling, Non-tender, No masses Resp/Chest Respiratory/Chest No retractions Resp Distress/Stridor Resp distress mild. Diminished Breath Sounds Decreased L. Wheezing/Retractions Wheeze insp/exp diffuse. Cardiovascular Cardiovascular Regular rhythm, Heart sounds NL, Cap refill not delayed, Peripheral circulation NL Heart Rate/Rhythm Tachycardia. Abdomen/GI Abdomen/GI Soft, Non-tender, No guarding, No rebound MS Back Back Inspection NL, Painless range of motion, Non-tender, No CVA tenderness MS Upper Extrem Upper Extremity/MS Inspection NL, No swelling, Non-tender, No erythema, No deformity, Neurologic intact, Vascular intact, No clubbing/cyanosis MS Wrist/Hand Wrist/Hand Inspection NL, No swelling, No erythema, Non-tender, No deformity, Neurologic intact, Vascular intact, No clubbing/cyanosis MS Lower Extrem Lower Ext/Pelvis/MS Inspection NL, No swelling, Non-tender, No erythema, No deformity, Neurologic intact, Vascular intact, No edema MS Ankle/Foot Ankle/Foot Inspection NL, No swelling, No erythema, Non-tender, No deformity, Neurologic intact, Vascular intact, No edema Skin Skin Color NL, Warm, Dry, Turgor NL Neurologic Neurologic Oriented X3, Speech NL, No motor deficits, No sensory deficits Psychiatric Psychiatric Affect NL, Mood NL, Thought content NL Interpretation Diagnostics Point of Care Testing Pulse Oximetry Pulse Ox % 97 On: Room air Interpretation Interpreted by me Time 2256 Re-Evaluation MDM Re-Evaluation/Progress #1 Time of Re-Eval 0020 Re-Eval Status Unchanged Eval Following Treatment Condition unchanged Pain Re-Evaluation Denies pain Exam Post Tx - General Active, Alert, Vital signs stable Exam Post Tx - Sys Review Mental status baseline Plan Post Re-Eval Plan observe Differential Diagnosis Differential Diagnosis Tonsillitis: acute, Upper resp infection Patient Discharge Departure Vital Signs/Condition Condition Stable Clinical Impression Clinical Impression Primary Impression: URI (upper respiratory infection) Discharge/Care Plan Counseled Regarding Diagnosis, Lab results, Imaging studies, Prescriptions (Auto) Prescriptions Current Visit Scripts predniSONE 60 MG PO DAILY predniSONE 60 MG PO DAILY #15 TABS UNTIL FINISHED (5 DAYS) Pt/Provider Handoff Handoff Note This patient's care has been transferred to and accepted by [Cuauhtemoc WOODRUFF]. We discussed: the patient's chief complaint; labs and imaging that have been completed and those that are still pending; procedures that have been completed and those remaining to be done; any treatment provided and the patient's response to treatment; any significant change in condition; input from consultants if any; the treatment plan prior to the transfer of care. The accepting physician will follow up on all pending labs and imaging and make any necessary changes to the current impression and/or treatment plan. The accepting physician is now responsible for the patient's care and final disposition. Quality Measures BP F/U for HTN Referred for BP f/u < 4wk, F/u with PCP/other doc Pharyngitis Testing Group A Strep test doc Current Medications Attest: Medication review Smoking Cessation Screened, non user Tobacco Screening/Cessation 18 years or older, Denies tobacco use Leland Posadas 11/08/20 0211: HPI-General Illness Presentation Sudden in Onset? No Onset Occurred Days ago Symptom Duration Since onset Progression since Onset Unchanged Caused by No trauma by history Severity: Current No pain currently Exacerbated by Nothing Relieved by Nothing Review of Systems ROS Statements Complete sys rev neg except as marked. Review of Systems Constitutional Reports: Fever. Denies: Chills, Fatigue, Weakness - generalized. Respiratory Reports: Cough, non-productive, Shortness of breath, Wheezing. Denies: Cough, productive, Dyspnea on exertion. Cardiovascular Denies: Chest pain, Dyspnea on exertion, Edema, Syncope. GI Denies: Abdominal pain, Nausea, Vomiting. Musculoskeletal Denies: Extremity pain, Extremity swelling. Skin Denies: Rash, Swelling. Physical Exam Vital Signs Vital Signs First Documented: Result Date Time Pulse Ox 97 11/07 2255 B/P 129/79 11/07 2255 B/P Mean 95 11/07 2255 O2 Delivery Room air 11/07 2255 Temp 36.4 11/07 2255 Pulse 116 11/07 2255 Resp 20 11/07 2255 Last Documented: Result Date Time Pulse Ox 97 11/07 2255 B/P 129/79 11/07 2255 B/P Mean 95 11/07 2255 O2 Delivery Room air 11/07 2255 Temp 36.4 11/07 2255 Pulse 116 11/07 2255 Resp 11/07 Review of Vital Signs Reviewed Physical Exam General/Const General/Const Awake, Alert, Well appearing MS Head Head Normocephalic Resp/Chest Respiratory/Chest Breath sounds NL, Breath sounds = bilat, No respiratory distress, No rales, No rhonchi, No wheezing Cardiovascular Cardiovascular Heart rate NL, Regular rhythm, Heart sounds NL, Cap refill not delayed, Peripheral circulation NL Lymphatic Lymphatic No gross adenopathy MS Upper Extrem Upper Extremity/MS Inspection NL, No swelling, Non-tender, No erythema, No deformity, Neurologic intact, Vascular intact, No clubbing/cyanosis MS Wrist/Hand Wrist/Hand Inspection NL, No swelling, No erythema, Non-tender, No deformity, Neurologic intact, Vascular intact, No clubbing/cyanosis Skin Skin Color NL, Warm, Dry, Turgor NL Neurologic Neurologic Oriented X3, Speech NL, No motor deficits, No sensory deficits Interpretation Diagnostics Lab Results Interpretation Results Laboratory Tests 11/07/202323: [Embedded Image Not Available] Laboratory Tests: 11/07 2324 232 Chemistry Sodium (136 - 145 mmol/L) 139 Potassium (3.5 - 5.1 mmol/L) 3.1 L Chloride (98 - 107 mmol/L) 109.0 H Carbon Dioxide (21 - 32 mmol/L) 24.0 Anion Gap (10 - 20) 9.1 L BUN (7 - 18 mg/dL) 10 Creatinine (0.55 - 1.02 mg/dL) 0.60 Glomerular Filtr Rate (>=60 mL/min) > 60 BUN/Creatinine Ratio (10 - 20) 15.4 Glucose (74 - 106 mg/dL) 102 Lactic Acid (0.4 - 1.9 mmol/L) 1.2 Calcium (8.5 - 10.1 mg/dL) 9.8 Ferritin (8 - 388 ng/mL) 21 Total Bilirubin (0.0 - 1.0 mg/dL) 0.50 Direct Bilirubin (0.0 - 0.20 mg/dL) 0.20 AST (15 - 37 IUnit/L) 24 ALT (12 - 78 IUnit/L) 24 Total Alk Phosphatase (45 - 117 IUnit/L) 81 Lactate Dehydrogenase (84 - 246 IUnit/L) 135 Troponin I (0 - 0.045 ng/mL) 0.013 B-Natriuretic Peptide (0 - 100 pgram/mL) 16.6 Total Protein (6.4 - 8.2 gram/dL) 7.6 Albumin (3.4 - 5.0 g/dL) 4.3 Globulin (2.7 - 4.2 gram/dL) 3.3 Albumin/Globulin Ratio (0.75 - 1.50) 1.3 Lipase (12.00 - 57.00 U/L) 39 Hematology WBC (4.5 - 12.5 K/mm3) 6.2 RBC (3.7 - 5.2 mill/mm3) 4.60 Hgb (11.5 - 15.5 gram/dL) 14.2 Hct (36.0 - 46.0 %) 42.2 MCV (80 - 98 fL) 91.7 MCH (27.0 - 33.0 picogram) 30.9 MCHC (33.0 - 36.0 gram/dL) 33.6 RDW (11.6 - 16.2 %) 12.8 RDW Std Deviation (37.0 - 51.0 fL) 42.6 Plt Count (150 - 450 K/mm3) 218 MPV (6.7 - 11.0 fL) 11.2 H Neut % (Auto) (39.0 - 69.0 %) 51.0 Lymph % (Auto) (25.0 - 55.0 %) 35.3 [place] % (Auto) (0.0 - 10.0 %) 9.2 Eos % (Auto) (0.0 - 5.0 %) 3.4 Baso % (Auto) (0.0 - 1.0 %) 0.6 Neut # (Auto) (1.8 - 7.7 K/mm3) 3.16 Lymph # (Auto) (1.0 - 5.0 K/mm3) 2.19 [place] # (Auto) (0 - 0.8 K/mm3) 0.57 Eos # (Auto) (0.0 - 0.5 K/mm3) 0.21 Baso # (Auto) (0.0 - 0.2 K/mm3) 0.04 Nucleated RBC % (0 - 0 %) 0.0 Nucleated RBCs # (Man) (0.0 - 0.1 K/mm3) 0.00 Serology SARS-CoV-2 Ag (Rapid) NEGATIVE Streptococcus sp PCR (NEGATIVE) NEGATIVE FOR G/C Strep pneumoniae (PCR) (NEGATIVE) NEGATIVE FOR GRP A 11/07 2322 Chemistry C-Reactive Protein (0 - 0.3 mg/dL) < 0.40 H Microbiology: Date/Time Procedure - Status Source Growth 11/07 2323 Group A Streptococcus Screen (LYNETTE) - COMP THROAT 11/07 2322 Influenza Virus Type B Antigen - COMP NASAL 11/07 2322 Influenza Virus Type A Antigen - COMP NASAL 11/07 2322 Blood Culture - RECD BLOOD 11/07 2322 Blood Culture - RECD BLOOD Recent Impressions: RADIOLOGY - XR CHEST 1 V 11/07 2309 Report Impression - Status: SIGNED Entered: 11/07/20202331 IMPRESSION: No acute cardiopulmonary disease. Impression By: Ayden - Marium Kaur MD Point of Care Testing Pulse Oximetry Pulse Ox % 97 On: Room air Interpretation Interpreted by me Re-Evaluation MDM Re-Evaluation/Progress #1 Text/Dict Note Well-appearing. Lungs clear to auscultation. States she feels better. No acute symptoms. Speaking full sentences. No additional complaints. Time of Re-Eval 0200 Re-Eval Status Resolved ED Course Medication(s) Ordered Medication(s) Ordered: Anti-Infective Agents Sig/Justin Start time Last Medication Dose Route Stop Time Status Admin Azithromycin 500 MG X1ED STA 11/07 2306 DC 11/08 Sodium Chloride 250 ML IV 11/086 0015 Ceftriaxone Sodium 1,000 MG X1ED STA 11/07 2306 DC 11/08 Sodium Chloride 10 ML IV 11/07 2308 0015 Central Nervous System Agents Sig/Justin Start time Last Medication Dose Route Stop Time Status Admin Acetaminophen 1,000 MG X1ED STA 11/07 2306 DC 11/08 PO 11/07 2307 0015 Electrolytic, Caloric, And Tisha Sig/Justin Start time Last Medication Dose Route Stop Time Status Admin Potassium Chloride 40 MEQ X1ED STA 11/08 0138 DC 11/08 PO 11/08 138 0219 Sodium Chloride 500 ML X1ED 11/07 DC 11/08 IV 11/08 0006 0015 Patient Discharge Departure Vital Signs/Condition Vital Signs First Documented: Result Date Time Pulse Ox 97 11/07 225 B/P 129/79 11/07 2256 B/P Mean 95 11/07 2255 O2 Delivery Room air 11/07 2255 Temp 36.4 11/07 2255 Pulse 116 11/07 2255 Resp 20 11/07 2255 Last Documented: Result Date Time Pulse Ox 97 11/07 2256 B/P 129/79 11/07 2256 B/P Mean 95 11/07 2255 O2 Delivery Room air 11/07 2255 Temp 36.4 11/07 2255 Pulse 116 11/07 2255 Resp 20 11/07 2255 All vital signs available at the time of this entry have been reviewed. Disposition Decision Discharge )( Discharged to Home Yes )( Time 0211 )( Date 11/08/20 Discharge/Care Plan Counseled Regarding Diagnosis, Lab results, Imaging studies, Prescriptions, Need for follow-up, When to return to ED Patient Instructions ED Asthma, Acute (Adult), ED Bronchitis, No Antibiotic ( Adult) Referrals [facility]: 2-3 Days Supervising Physician Note MidLv/Doc Saw Pt 1 I have seen and evaluated this patient and agree with the nurse practitioner or physician hr assistant's documentation and assessment. Documentation of one or more elements of my assessment are included in the medical record. at 0236 at 0909 RPT #:[id number] END OF REPORT [facility] 2020-09-19 14:47:[address] [facility] ([facility]) OB-INSURANCE INVESTIGATOR Progress Note REPORT#:[id number] REPORT STATUS: Signed DATE:09/19/20 TIME: 1447 PATIENT: LUIS ALBERTO GAFFNEY UNIT #: [id number] ROOM/BED: : 00 AGE: 20 SEX: F ATTEND: Andres Hameed MD ADM AUTHOR: Andres Hameed MD * ALL edits or amendments must be made on the electronic/computer document * Subjective Patient reports: Patient reports: Yes pain controlled, Yes tolerating diet, No complaints, No fever, No headache, No nausea Objective General VS/I O: Last Documented: Result Date Time Pulse Ox 97 09/19 1143 B/P 118/79 09/19 1143 B/P Mean 92.1 09/19 1143 Temp 97.7 09/19 1143 Pulse 64 09/19 1143 Resp 16 09/19 1143 Vital Signs Date Temp Pulse Resp B/P B/P Mean Pulse Ox FiO2 09/18-09/19 97.5-99.1 57-79 16-18 108-134/72-83 84.0-99.1 96-99 24 hour I O ending at 0700: 09/19 0700 09/18 1900 Intake Total 185 Output Total 1000 Balance -815 Blood Loss 65 Quantification Method Intake, Other 185 Output, Other 1000 PATIENT WEIGHT: Weight (lb): 137 Weight (oz): Weight (kg): 62.142 Physical Exam General Appearance: alert, awake, no acute distress Abdomen: non-tender, soft Fundus: non-tender, firm Results Findings/Data: Laboratory Tests 09/19 0545 Hematology WBC (4.5 - 12.5 K/mm3) 20.0 H RBC (3.7 - 5.2 mill/mm3) 3.55 L Hgb (11.5 - 15.5 gram/dL) 11.3 L Hct (36.0 - 46.0 %) 35.0 L MCV (80 - 98 fL) 98.6 H MCH (27.0 - 33.0 picogram) 31.8 MCHC (33.0 - 36.0 gram/dL) 32.3 L RDW (11.6 - 16.2 %) 13.1 RDW Std Deviation (37.0 - 51.0 fL) 46.5 Plt Count (150 - 450 K/mm3) 147 L MPV (6.7 - 11.0 fL) 12.4 H Neut % (Auto) (39.0 - 69.0 %) 81.3 H Lymph % (Auto) (25.0 - 55.0 %) 11.0 L [place] % (Auto) (0.0 - 10.0 %) 6.3 Eos % (Auto) (0.0 - 5.0 %) 0.4 Baso % (Auto) (0.0 - 1.0 %) 0.3 Neut # (Auto) (1.8 - 7.7 K/mm3) 16.25 H Lymph # (Auto) (1.0 - 5.0 K/mm3) 2.21 [place] # (Auto) (0 - 0.8 K/mm3) 1.27 H Eos # (Auto) (0.0 - 0.5 K/mm3) 0.09 Baso # (Auto) (0.0 - 0.2 K/mm3) 0.07 Nucleated RBC % (0 - 0 %) 0.0 Nucleated RBCs # (Man) (0.0 - 0.1 K/mm3) 0.00 Diagnosis, Assessment Plan Free Text A P: PPD #1, UTI continue routine postop care d/c home when discharged rx sent for tylenol #3, macrobid for UTI - 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 ([facility]) OB Delivery Note REPORT#:[id number] REPORT STATUS: Signed DATE:09/18/20 TIME: 1302 PATIENT: LUIS ALBERTO GAFFNEY UNIT #: [id number] ROOM/BED: [address] : 00 AGE: 20 SEX: F ATTEND: Andres Hameed MD ADM AUTHOR: Andres Hameed MD * ALL edits or amendments must be made on the electronic/computer document * OB Delivery Baby A Information Baby A information Delivery date: 09/18/20 Delivery time: 1249 status: live born Wt of baby (lbs/oz): 5lb 14oz Gender: female 1 minute: 8 5 minutes: 9 Presentation: vertex Nuchal cord Baby A Nuchal cord: no Vaginal Delivery Vaginal delivery: Labor: induced Medications/Devices used: oxytocin, cytotec Vaginal delivery: spontaneous Amniotic fluid: clear Anesthesia type: epidural anesthesia Episiotomy: none Laceration repair: yes Placenta: spontaneous Post delivery meds used: oxytocin Count: correct Vaginal packing: No Mother's condition: mother stable Infant's condition: stable in room Lacerations: Perineal laceration(s): 2nd Degree Blood Loss/Details Blood loss at delivery: <1000 ml QBL at delivery (ml's): 65 at 1304 RPT #:[id number] END OF REPORT [facility] 2020-08-05 18:48:00 [facility] LORNA Evaluation Note REPORT#:[id number] REPORT STATUS: Signed DATE:08/05/20 TIME: 184 PATIENT: LUIS ALBERTO GAFFNEY UNIT #: [id number] ROOM/BED: : 00 AGE: 20 SEX: F ATTEND: Andres Hameed MD ADM AUTHOR: Arturo Kiran MD * ALL edits or amendments must be made on the electronic/computer document * LORNA History Chief complaint: Abdo pains HPI: This 20yo G1 at 33w2d by her declared [facility]ORY of 09/21/2020 presents with a 1 day hx/ o intermittent hypogastric pains; Peak at 6/10 intensity and Q 5 min frequency. Denies pv loss, fever, chills. FM+ On macrobid for 2nd UTI this . Past medical history: asthma (last use of MDI 1wk ago), UTI Social history: no alcohol use, no tobacco use, no drug use Family history Relation not specified for: Family History: Diabetes Medications: Home Medications: Medication Dose/Rte/Freq Days Qty Entered Last Max Daily Dose Reviewed PNV WITH FE 1 TAB PO DAILY 08/05/20 FUMARATE/FA 1746 () Strength: 1 EACH TAB NITROFURANTOIN/NITROFURAN 100 MG PO BID 08/05/20 MAC 1747 (MACROBID) Strength: 100 MG CAP ALBUTEROL MDI prn Allergies Coded Allergies: No Known Allergies (08/05/20) Review of Systems Constitutional: Denies: chills, fatigue, fever. Skin: Denies: rash. Respiratory: Denies: WILLARD (dyspnea on exertion), pleuritic pain. Cardiovascular: Denies: chest pain, WILLARD (dyspnea on exertion). GI: Denies: constipation, diarrhea. : Denies: dysuria, frequency. Neuro: Denies: headache, seizure. Objective General VS: Last Documented: Result Date Time Pulse Ox 99 08/05 175 Pulse 87 08/05 1755 B/P Mean 88.0 08/05 174 B/P 118/71 08/05 1741 Temp 97.0 08/05 174 Vital Signs Date Temp Pulse Resp B/P B/P Mean Pulse Ox FiO2 08/05 97.0 85-102 118/ 88.0 98-99 Patient Weight Weight (lb): 137 Weight (oz): Weight (kg): 62.142 Physical Exam HEENT: no scleral icterus Abdomen: gravid, soft, no abnormal tenderness Uterine activity: Frequency (description): occasional Pelvic exam: Pelvis clinically adequate: Tender urethra Vulvar lesions: none Vagina: normal Exam: soft, non-tender, approp size for gest age Cervical/ exam: Dilatation (cm): 0 - closed Effacement (%): 0 station: - 4 FHR evaluation: Baseline: 130 bpm FHR category: category 1 Membranes: Membranes: Intact Lower extremities: Calf tenderness: negative Diagnosis, Assessment Plan Diagnosis, Assessment Plan Free Text A P: 20yo G1 at 33w2d with differntil diagnoses to include labor vs UTI vs Urethritis. Labs pending. Reviewed at 8pm UA suspicious for ongoing infection. Switched from Macrobid which has been taking for 1 wk, to Augmentin 875mg bid ( called in to pharmacy). To call OBGYN office in 3 days for UC S and GC/chlamydia results at 2013 RPT #:[id number] END OF REPORT [facility] 2020-05-01 21:54:[address] [facility] ([facility]) EMERGENCY PROVIDER REPORT REPORT#:[id number] REPORT STATUS: Signed DATE:05/01/20 TIME: 2153 PATIENT: LUIS ALBERTO GAFFNEY UNIT #: [id number] ROOM/BED: AGE: 20 SEX: F PCP PHYS: Andres Hameed MD SERVICE AUTHOR: Tod Woo MD * ALL edits or amendments must be made on the electronic/computer document * HPI-Abd Pain F Under 40 General Confirmed Patient Yes Initial Greet Date/Time 05/01/202139 PCP Sandra Presentation Chief Complaint Abdominal pain Hx Obtained From Patient Sudden in Onset? No Onset Occurred Days ago, Chronic Symptom Duration Since onset Caused by No trauma by history Location Abdomen lower Free Text HPI Notes Free Text HPI Notes [id number] female, denies significant past medical history, here with acute on chronic lower abdominal pain. Patient states she been doing with abdominal pain in this entire . It is been getting worse over the past 2 to 3 days. No other GI or symptoms, no chest pain shortness of breath or cardiopulmonary symptoms, no back pain. Patient states that besides this pain, she has had no issues this , and that her has been confirmed by ultrasound. Risk-Abd Pain F Under 40 )( Ectopic Risk factors reviewed Review of Systems ROS Statements All systems rev neg except as marked. Focused Review of Systems GI Reports: Abdominal pain. Denies: Anorexia, Constipation, Diarrhea, Nausea, Rectal pain, Vomiting. Female Reports: Pelvic pain, . Denies: Dysuria, Flank pain, Hematuria, Incontinence, Nocturia, Urinary frequency, Urinary urgency, Urination decreased, Urination increased, Vaginal bleeding - abnl, Vaginal discharge. Free Text ROS Notes Free Text ROS Notes General: denies fevers, denies rigors Cardiovascular: denies chest pain, denies sycnope Pulmonary: denies cough, denies SOB : denies change in bladder habits, denies discharge Neuro: denies focal neurologic symptoms Also of note: - Chronic conditions/symptoms are considered negative if at baseline - Additional ROS may be present in HPI Past Medical History - Adult Stated Complaint ABD PAIN-- Allergies Coded Allergies: No Known Allergies (05/01/20) Home Medications Reported Medications No Known Home Medications Review of Nursing Notes Rev avail, and agree Pt reports no significant: Past medical history, Social history Smoking status for patients 13 years old or older: Never Smoker Physical Exam Vital Signs Vital Signs First Documented: Result Date Time Pulse Ox 98 05/01 2140 B/P 106/68 05/01 2140 B/P Mean 80 05/01 2140 O2 Delivery Room air 05/01 2140 Temp 36.9 05/01 2140 Pulse 134 05/01 2140 Resp 17 05/01 2140 Last Documented: Result Date Time Pulse Ox 100 05/01 2148 O2 Delivery Room air 05/01 2148 Pulse 112 05/01 2148 Resp 18 05/01 2148 B/P 106/68 05/01 2140 B/P Mean 80 05/01 2140 Temp 36.9 05/01 2140 Review of Vital Signs Reviewed, Vital signs abnormal Basic Physical Exam Basic PE HEAD: Atraumatic/NC, EYES: PERRL, conj clear, ENT: Membranes moist, NECK: Supple, EXT: No gross abnormality, SKIN: No rashes, warm/dry, NEURO: alert oriented, NEURO: gross movement NL, PSYCH: NL thought content Focused PE General/Const General/Const Awake, Alert, Well appearing Resp/Chest Respiratory/Chest Breath sounds NL, Breath sounds = bilat, No respiratory distress, No rales, No rhonchi, No wheezing Cardiovascular Cardiovascular Regular rhythm, Heart sounds NL, Peripheral circulation NL Abdomen/GI Abdomen/GI Soft, Non-tender, McBurney's non-tender, No guarding, No rebound, BS normoactive, No distention, No hernia, No palpable mass MS Back Back Inspection NL, Non-tender, No CVA tenderness Skin Skin Color NL, Warm, Dry, Turgor NL Neurologic Neurologic Oriented X3, Speech NL, No motor deficits, No sensory deficits Free Text PE Notes Free Text PE Notes Appropriate, gravid uterus. Mild tachycardia, heart rate ranged from 100, to 110 during my evaluation. Dry mucous membranes, the patient states that she is not been drinking as much water as she should recently Interpretation Diagnostics Lab Results Interpretation Results Laboratory Tests 05/01/202147: [Embedded Image Not Available] Laboratory Tests: 05/01 2148 Chemistry Sodium (136 - 145 mmol/L) 139 Potassium (3.5 - 5.1 mmol/L) 3.6 Chloride (98 - 107 mmol/L) 107.0 Carbon Dioxide (21 - 32 mmol/L) 22.0 Anion Gap (10 - 20) 13.6 BUN (7 - 18 mg/dL) 10 Creatinine (0.55 - 1.02 mg/dL) 0.50 L Glomerular Filtr Rate (>=60 mL/min) > 60 BUN/Creatinine Ratio (10 - 20) 20.4 H Glucose (74 - 106 mg/dL) 85 Calcium (8.5 - 10.1 mg/dL) 9.5 Hematology WBC (4.5 - 12.5 K/mm3) 12.2 RBC (3.7 - 5.2 mill/mm3) 3.82 Hgb (11.5 - 15.5 gram/dL) 12.3 Hct (36.0 - 46.0 %) 36.0 MCV (80 - 98 fL) 94.2 MCH (27.0 - 33.0 picogram) 32.2 MCHC (33.0 - 36.0 gram/dL) 34.2 RDW (11.6 - 16.2 %) 13.0 Plt Count (150 - 450 K/mm3) 217 MPV (6.7 - 11.0 fL) 10.3 Recent Impressions: ULTRASOUND - US PREG AFTER TRI 05/01 2210 Report Impression - Status: SIGNED Entered: 05/01/20202240 IMPRESSION: Presence of a single viable intrauterine gestation 2nd trimester without gross abnormalities noted Impression By: Ro - Julee Jimenez M.D. Lab Imaging Statement Laboratory radiographic studies reviewed and considered in the medical decision-making. Re-Evaluation MDM Free Text MDM Notes Free Text MDM Notes 22-year-old female, here with acute on chronic nonspecific lower abdominal pain, negative work-up. Symptoms resolved. Safe for discharge home )( Re-Evaluation/Progress #1 Text/Dict Note Patient reports resolution of symptoms, she decision to DC urine studies that she has no urinary symptoms, no discharge )( Re-Eval Status Resolved ED Course Medication(s) Ordered Medication(s) Ordered: Central Nervous System Agents Sig/Justin Start time Last Medication Dose Route Stop Time Status Admin Acetaminophen 650 MG X1ED STA 05/01 2150 DC 05/01 PO 05/01 Electrolytic, Caloric, And Tisha Sig/Justin Start time Last Medication Dose Route Stop Time Status Admin Sodium Chloride 1,000 ML X1ED STA 05/01 2150 DC 05/01 IV 05/01 Gastrointestinal Drugs Sig/Justin Start time Last Medication Dose Route Stop Time Status Admin Metoclopramide HCl 10 MG X1ED STA 05/01 2150 DC 05/01 IV 05/01 Patient Discharge Departure Vital Signs/Condition Vital Signs First Documented: Result Date Time Pulse Ox 98 05/01 2140 B/P 106/68 05/01 214 B/P Mean 80 05/01 2140 O2 Delivery Room air 05/01 2140 Temp 36.9 05/01 2140 Pulse 134 05/01 2140 Resp 17 05/01 2140 Last Documented: Result Date Time Pulse Ox 100 05/01 2148 O2 Delivery Room air 05/01 2148 Pulse 112 05/01 2148 Resp 18 05/01 2148 B/P 106/68 05/01 2140 B/P Mean 80 05/01 2140 Temp 36.9 05/01 2140 All vital signs available at the time of this entry have been reviewed. Clinical Impression Clinical Impression Primary Impression: Abdominal pain Secondary Impressions: Dehydration Disposition Decision Discharge )( Discharged to Home Yes )( Time 2308 )( Date 05/01/20 Discharge/Care Plan Counseled Regarding Diagnosis, Lab results, Imaging studies, Need for follow-up, When to return to ED (Auto) Prescriptions Current Visit Scripts No Known Home Medications at 2308 RPT #:[id number] END OF REPORT [facility] 2017-06-20 10:55:34 EXAM: XR CHEST 1 VIE W DATE: 06/20/2017 10:38 AM CDT INDICATION: - Dyspnea COMPARISON: None. TECHNIQUE: AP chest FINDINGS: Lines, tubes and hardware: None. Lungs and pleura: No pulmonary or pleural based abnormality is identified. Pulmonary vascularity is normal. Heart and mediastinum: The heart size is normal for technique. The mediastinal contours are normal. Bones: No acute bony abnormality is identified. IMPRESSION: No acute cardiopulmonary abnormality. UT SECTION: ER [facility]
[2025-04-26] MEDS ORDERED: predniSONE 20 MG TAB ONE (20:00)
[2025-04-26] MEDS ORDERED: IPRATROPIUM BROM 0.5MG/2.5ML ONE (20:00)
[2025-04-26] MEDS ORDERED: ALBUTEROL 2.5 MG/3 ML NEB SOL ONE (20:00)
--- NOTE | 2025-04-26 20:20 | RAD REPORT ---
EXAMINATION: ONE VIEW CHEST XR CLINICAL INDICATION: SOB TECHNIQUE: Frontal chest projection is submitted. Examination is limited by patient positioning and t echnique. COMPARISON: No prior exam. FINDINGS: The lungs are well inflated and clear. The heart is normal in size. No displaced fractures identified . Mild thoracic dextroscoliosis. IMPRESSION: No acute intrathoracic abnormalities.
--- NOTE | 2025-04-26 20:33 | ER ---
Nurse's Notes [facility] Name: Latha Servin Age: 25 yrs Sex: Female : 2000 Arrival Date: 04/26/2025 Time: 18:23 Bed 26 Private MD: Diagnosis: Unspecified asthma with (acute) exacerbation Presentation: 04/26 18:43 Chief complaint: Patient states: wheezing and trouble breathing that began 1 hr ago, aa5 reports she ran out of her inhaler. Coronavirus screen: shortness of breath. Ebola Screen: Patient denies travel to an Ebola-affected area in the 21 days before illness onset. Initial Sepsis Screen: Does the patient meet any 2 criteria? RR > 20 per min. HR > 90 bpm. Does the patient have a suspected source of infection? No. Patient's initial sepsis screen is negative. Risk Assessment: Do you want to hurt yourself or someone else? Patient reports no desire to harm self or others. Onset of symptoms was April 26, 2025. 18:43 Method Of Arrival: Ambulatory aa5 18:43 Acuity: ADALBERTO 3 aa5 Triage Assessment: 21:07 Respiratory: Reports shortness of breath at rest Onset: The symptoms/episode tb4 began/occurred today, DIRECTOR CHECK: 21:07 Not tb4 Historical: - Allergies: 18:44 No Known Allergies; aa5 - Home Meds: 18:44 Albuterol Inhl [Active]; aa5 - PMHx: 18:44 Asthma; Heart murmur; aa5 - Immunization history:: Adult Immunizations unknown. - Infectious Disease History:: Denies. - Social history:: Smoking status: Patient reports the use of cigarette tobacco products, Reported history of juuling and/or vaping. Screenin:19 [facility] ED Fall Risk Assessment (Adult) History of falling in the last 3 months, tb4 including since admission No falls in past 3 months (0 pts) Confusion or Disorientation No (0 pts) Intoxicated or Sedated No (0 pts) Impaired Gait No (0 pts) Mobility Assist Device Used No (0 pt) Altered Elimination No (0 pt) Score/Fall Risk Level 0 - 2 = Low Risk Oriented to surroundings, Maintained a safe environment. Abuse screen: Denies threats or abuse. Denies injuries from another. Nutritional screening: No deficits noted. Tuberculosis screening: No symptoms or risk factors identified. Assessment: 19:04 Reassessment: Patient is alert, oriented x 3, equal unlabored respirations, skin tb4 warm/dry/pink. See triage note. General: Appears in no apparent distress. comfortable, Behavior is calm, cooperative. Pain: Denies pain. Neuro: No deficits noted. Level of Consciousness is awake, alert, obeys commands, Oriented to person, place, time, situation, Moves all extremities. Full function Gait is steady, Speech is normal, Facial symmetry appears normal. Cardiovascular:. Respiratory: Airway is patent Trachea midline Respiratory effort is even, unlabored, Respiratory pattern is regular, symmetrical, Breath sounds are clear bilaterally. GI: No signs and/or symptoms were reported involving the gastrointestinal system. : No signs and/or symptoms were reported regarding the genitourinary system. EENT: No signs and/or symptoms were reported regarding the EENT system. Derm: No signs and/or symptoms reported regarding the dermatologic system. Skin is intact, is healthy with good turgor, Skin is moist, Skin is normal, Skin temperature is warm. Musculoskeletal: Circulation, motion, and sensation intact. Range of motion: intact in all extremities. 21:09 Cardiovascular: Rhythm is regular. tb4 Vital Signs: 18:43 BP 114 / 76; Pulse 97; Resp 24 S; Temp 98.3(O); Pulse Ox 99% on R/A; Weight 52.16 kg aa5 (R); Height 5 ft. 1 in. (R); 19:11 BP 115 / 78; Pulse 76; Resp 18; Temp 98(O); Pulse Ox 100% on R/A; Weight 52.16 kg; tb4 Height 5 ft. 2 in. ; Pain 0/10; 21:09 BP 106 / 74; Pulse 69; Resp 18; Pulse Ox 100% on R/A; Pain 0/10; tb4 19:11 Body Mass Index 21.03 (52.16 kg, 157.48 cm) tb4 19:11 Pain Scale: Adult tb4 21:09 Pain Scale: Adult tb4 ED Course: 18:25 Patient arrived in ED. al6 18:28 Abiodun Knight PA is PHCP. cp 18:28 Damian Boswell DO is Attending Physician. cp 18:43 Arm band placed on. aa5 18:44 Triage completed. aa5 19:19 Patient has correct armband on for positive identification. Bed in low position. Call tb4 light in reach. Client placed on continuous cardiac and pulse oximetry monitoring. NIBP monitoring applied. Pulse ox on. Door closed. Lights dimmed. 19:19 No provider procedures requiring assistance completed. Patient did not have IV access tb4 during this emergency room visit. 19:40 XRAY Chest (1 view) In Process Unspecified. EDMS 21:08 Provided Education on: Take medication as prescribed. tb4 Administered Medications: 20:07 Drug: Albuterol Inhalation 2.5 mg Inhalation once Route: Inhalation; tb4 21:02 Follow up: Response: No adverse reaction tb4 20:07 Drug: Ipratropium Inhalation Aerosol 0.5 mg Inhalation once Route: Inhalation; tb4 21:02 Follow up: Response: No adverse reaction tb4 20:07 Drug: predniSONE PO 60 mg PO once Route: PO; tb4 21:02 Follow up: Response: No adverse reaction tb4 Medication: 19:11 VIS not applicable for this client. tb4 Outcome: 20:32 Discharge ordered by . kenan 21:07 Discharged to home ambulatory, tb4 21:07 Condition: stable 21:07 Discharge instructions given to patient, Instructed on discharge instructions, follow up and referral plans. Demonstrated understanding of instructions, follow-up care, medications, Prescriptions given X 2, 21:10 Patient left the ED. tb4 Signatures: Dispatcher [employer] [facility] Maura Payton, RN RN aa5 Abiodun Knight PA PA Marivel Reinoso al6 Chela Huynh RN RN tb4
--- NOTE | 2025-04-26 20:33 | EDPHYS ---
Physician Documentation [facility] Name: Latha Servin Age: 25 yrs Sex: Female : 2000 Arrival Date: 04/26/2025 Time: 18:23 Bed 26 Private MD: ED Physician Damian Boswell HPI: 04/26 18:50 This 25 yrs old Female presents to ER via Ambulatory with complaints of Breathing cp Difficulty. 18:50 Onset: The symptoms/episode began/occurred 1 hour(s) ago. Duration: The symptoms are cp continuous, and are steadily getting worse. Associated signs and symptoms: Pertinent negatives: chest pain, productive cough, fever. Patient reports PMHX significant for Asthma. Patient reports ran out of prescribed inhaler. 18:50 The patient has shortness of breath at rest. 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 - Infectious Disease History:: Denies. - Social history:: Smoking status: Patient reports the use of cigarette tobacco products, Reported history of juuling and/or vaping. ROS: 18:55 Constitutional: Negative for body aches, chills, fever, poor PO intake, cp 18:55 Eyes: Negative for injury, pain, redness, and discharge, cp 18:55 ENT: Negative for drainage from ear(s), ear pain, sore throat, difficulty swallowing, difficulty handling secretions, 18:55 Cardiovascular: Negative for chest pain, edema, palpitations, 18:55 Respiratory: Positive for shortness of breath, at rest. 18:55 Abdomen/GI: Negative for abdominal pain, vomiting, diarrhea, constipation, 18:55 Neuro: Negative for altered mental status, dizziness, headache, weakness, 18:55 All other systems are negative, Exam: 19:00 Constitutional: The patient appears in no acute distress, alert, awake, non-toxic, well cp developed, well nourished, 19:00 Head/Face: Normocephalic, atraumatic. cp 19:00 Eyes: Periorbital structures: appear normal, Conjunctiva: normal, no exudate, no injection, Sclera: no appreciated abnormality, Lids and lashes: appear normal, bilaterally, 19:00 ENT: External ear(s): are unremarkable, Nose: is normal, Mouth: Lips: moist, Oral mucosa: moist, Posterior pharynx: Airway: no evidence of obstruction, patent, 19:00 Chest/axilla: Inspection: normal, Palpation: is normal, no crepitus, no tenderness, 19:00 Cardiovascular: Rate: normal, Rhythm: regular, Edema: is not appreciated, JVD: is not cp appreciated, 19:00 Respiratory: the patient does not display signs of respiratory distress, Respirations: labored breathing, that is mild, intercostal retractions, are absent, Breath sounds: bronchial sounds, that are mild, throughout, decreased breath sounds, are not appreciated, stridor, is not appreciated, 19:00 Abdomen/GI: Inspection: abdomen appears normal, Palpation: abdomen is soft and non-tender, in all quadrants, 19:00 Back: pain, is absent, ROM is normal, 19:00 Neuro: Orientation: to person, place \T\ time. Mentation: is normal, Motor: moves all fours, strength is normal, Vital Signs: 18:43 BP 114 / 76; Pulse 97; Resp 24 S; Temp 98.3(O); Pulse Ox 99% on R/A; Weight 52.16 kg aa5 (R); Height 5 ft. 1 in. (R); 19:11 BP 115 / 78; Pulse 76; Resp 18; Temp 98(O); Pulse Ox 100% on R/A; Weight 52.16 kg; tb4 Height 5 ft. 2 in. ; Pain 0/10; 21:09 BP 106 / 74; Pulse 69; Resp 18; Pulse Ox 100% on R/A; Pain 0/10; tb4 19:11 Body Mass Index 21.03 (52.16 kg, 157.48 cm) tb4 19:11 Pain Scale: Adult tb4 21:09 Pain Scale: Adult tb4 MDM: 20:32 Medical Screening Exam initiated cp 20:32 Data reviewed: vital signs, nurses notes, lab test result(s), radiologic studies, plain cp films, and as a result, I will discharge patient. 20:32 Differential diagnosis: Anxiety Reaction Bronchitis pneumonia, Pneumothorax. cp Counseling: I had a detailed discussion with the patient and/or guardian regarding the historical points, exam findings, and any diagnostic results supporting the discharge/admit diagnosis, lab results, radiology results, to return to the emergency department if symptoms worsen or persist or if there are any questions or concerns that arise at home. Response to treatment: the patient's symptoms have markedly improved after treatment, and as a result, I will discharge patient. 04/26 18:47 Order name: Test, Urine; Complete Time: 20:39 cp 04/26 18:47 Order name: XRAY Chest (1 view); Complete Time: 20:31 cp 04/26 20:32 Interpretation: Report review. cp Administered Medications: 20:07 Drug: Albuterol Inhalation 2.5 mg Inhalation once Route: Inhalation; tb4 21:02 Follow up: Response: No adverse reaction tb4 20:07 Drug: Ipratropium Inhalation Aerosol 0.5 mg Inhalation once Route: Inhalation; tb4 21:02 Follow up: Response: No adverse reaction tb4 20:07 Drug: predniSONE PO 60 mg PO once Route: PO; tb4 21:02 Follow up: Response: No adverse reaction tb4 Disposition Summary: 04/26/25 20:32 Discharge Ordered Notes: Location: Home cp Problem: an acute exacerbation cp Symptoms: have improved cp Condition: Stable cp Diagnosis - Unspecified asthma with (acute) exacerbation cp Followup: cp - With: Private Physician - When: 2 - 3 days - Reason: Worsening of condition Discharge Instructions: - Discharge Summary Sheet cp - Asthma, Adult cp Forms: - Medication Reconciliation Form cp - Antibiotic Education cp - Prescription Opioid Use cp - Patient Portal Instructions cp - Leadership Thank You Letter cp Prescriptions: - albuterol sulfate 90 mcg/actuation Inhalation HFA Aerosol Inhaler - inhale 1 puff INHALATION route every 4 to 6 hours as needed for shortness of cp breath or wheezing; 1 unit; Refills: 0, Product Selection Permitted - Prednisone 20 mg Oral Tablet - take 2 tablets ORAL route once daily for 5 days; 10 tablet; Refills: 0, Product cp Selection Permitted Addendum: 04/28/2025 00:25 I was immediately available on-site in the Emergency Department for consultation in the m s3 care of the patient. Signatures: Dispatcher [facility] Maura Salinas RN RN aa5 Abiodun Knight PA PA cp Damian Boswell, DO SELBY ms3 Chela Huynh, RN RN tb4
[2025-04-26 21:55] VITALS: TEMP 98.3
[2025-04-26 21:57] VITALS: BP 106/74; O2SAT 100
== END 2025-04-26 21:10 | disposition home or self-care (01) ==
LOC: ER 18:23
DX: J45.901 Unspecified asthma with (acute) exacerbation (principal); Z72.0 Tobacco use
CPT/HCPCS: 71045; 81025; 99284; J7512; J7613; J7644